=== PATIENT | female | born 2000 | race Caucasian/White ===

== ENCOUNTER 2023-06-14 14:40 | Emergency (ER) | payer BC, SELFPAY ==
[2023-06-14] VITALS (10 sets, daily range): BP systolic 105–119; BP diastolic 71–75; PULSE 68–83; RESP 15–21; TEMP 36.7; O2SAT 99–100
--- NOTE | ~2023-06-14 | XR_ITS ---
EXAMINATION: XR chest 2V DATE: 06/14/2023 15:13 INDICATION: Chest pain. Palpitations. TECHNIQUE: Frontal and lateral views of the chest were obtained. COMPARISON: None. FINDINGS: There is no pneumonia, pleural effusion, or pneumothorax. The heart size is normal. IMPRESSION: 1. No acute cardiopulmonary disease. Reviewed, dictated and finalized at location B.
--- NOTE | 2023-06-14 14:47 | ECG_ITS ---
Measurements Intervals [place] Rate: 82 P: 73 OK: 163 QRS: 99 QRSD: 96 T: 47 QT: 346 QTc: 405 Interpretive Statements SINUS RHYTHM POSSIBLE RIGHT ATRIAL ENLARGEMENT [0.25mV P WAVE] POSSIBLE LEFT ATRIAL ENLARGEMENT BORDERLINE RIGHT AXIS DEVIATION [QRS AXIS > 90] INCOMPLETE RIGHT BUNDLE BRANCH BLOCK [90+ ms QRS DURATION, TERMINAL R IN V1/V2, 40+ ms S IN I/aVL/V4/V5/V6] NO PREVIOUS ECG AVAILABLE FOR COMPARISON Electronically Signed On 06-14-2023 19:38:53 CDT by Mihaela Flores M.D.
[2023-06-14 14:59] LABS: Basophils Percent Auto 0.6 % (0.2-1.2); Eosinophils Absolute Auto 0.4 K/mm3 (0-0.3); Hematocrit 38.3 % (37.0-47.0); Immature Granulocyte Absolute 0.02 K/mm3 (0.00-0.031); Immature Granulocyte Percent A 0.3 % (0-0.5); Lymphocytes Absolute Auto 2.13 K/mm3 (0.9-3.2); Lymphocytes Percent Auto 30.6 % (18.3-44.2); Mean Corpuscular HGB Conc 33.9 g/dl (32-36); Mean Corpuscular Hemoglobin 28.6 pg (26-34); Mean Corpuscular Volume 84.4 fl (80-100); Mean Platelet Volume 9.4 fl (7.4-10.4); Monocytes Absolute Auto 0.6 K/mm3 (0.1-0.6); Monocytes Percent Auto 8.9 % (2.6-8.5); Neutrophils Absolute Auto 3.8 K/mm3 (1.3-6.7); Neutrophils Percent Auto 54.6 % (45.5-73.1); Platelet Count Result 294 k/mm3 (150-375); Red Blood Count 4.54 M/mm3 (4.2-5.4); Red Cell Distribution Width 11.7 % (11.5-14.5)
--- NOTE | 2023-06-14 15:01 | ED.ARRPALP ---
HPI - Arrhythmia/Palpitations General Chief Complaint: Arrhythmia/Palpitations Stated Complaint: HEART RACING Time Seen by Provider: 06/14/23 14:43 History of Present Illness HPI narrative: 23-year-old female no medical problems presents to the emergency room for evaluation of sudden onset of palpitations and tachycardia. Patient states that she was sitting down when she began experiencing palpitations and shortness of breath. Patient states that she looked at her Apple Watch and saw that her heart rate was fluctuating between 110 and 130. Palpitations were associated with dizziness and lightheadedness. Patient denies any recreational drug use. No history of similar episodes. Related Data Home Medications Medication Instructions Recorded Confirmed atomoxetine 60 mg capsule 60 mg PO DIRECTED 06/14/23 06/14/23 Allergies Allergy/AdvReac Type Severity Reaction Status Date / Time No Known Drug Allergies Allergy Mild Unknown Verified 06/14/23 14:44 Review of Systems Review of Systems: CONSTITUTIONAL: Denies fever, chills, or sweats. EYES: Denies visual changes, redness, or discharge. ENT: Denies rhinorrhea, congestion, sore throat, or otalgia. CARDIOVASCULAR: Reports chest pain and palpitations. RESPIRATORY: Denies cough or dyspnea. GASTROINTESTINAL: Denies abdominal pain, nausea, vomiting, or diarrhea. GENITOURINARY: Denies dysuria or hematuria. SKIN: Denies rash or itching. MUSCULOSKELETAL: Denies back pain, joint pain, or myalgia. NEUROLOGIC: Reports dizziness PSYCHIATRIC: Denies anxiety or depression. [facility] Past Medical History Medical History (Updated 06/14/23 @ 16:11 by Ashwin Prince, DIE GRINDER) Carpal tunnel syndrome of left wrist Chronic headaches Left wrist pain Numbness and tingling Social History Social History (Updated 07/28/22 @ 09:17 by Violet Benitez) Smoking status: Current every day smoker Tobacco type: e-cigarettes/vaping Second hand tobacco smoke exposure: Yes Drinks per week: 5 Substance use: never Living arrangements: with family Occupation/Education: occupation Additional occupation/education comments: steel handler Gender identity (if verbalized by the patient): Female Exam Narrative: GENERAL: Well-appearing, well-nourished, no physical limitations, and in no acute distress. HEAD: Normocephalic, atraumatic. EYES: Conjunctivae normal, PERRLA and EOMI. CHEST: Clear to auscultation. No respiratory distress. No wheezes rales or rhonchi. HEART: Regular rate and rhythm. No murmur heard. Normal peripheral pulses. EXTREMITIES: Normal range of motion. No edema. No clubbing or cyanosis SKIN: Warm, dry, no rash. No noted wounds NEURO: No focal deficits. Alert and oriented x3. MAEW. CN's II-XI intact bilaterally, normal gait PSYCH: Cooperative. Normal mood and affect. Appears in Course Vital Signs Vital signs: Vital Signs Temperature 36.7 C 06/14/23 14:44 Pulse Rate 69 06/14/23 14:44 Respiratory Rate 20 06/14/23 14:44 Blood Pressure 119/75 06/14/23 14:44 Pulse Oximetry 100 06/14/23 14:44 Oxygen Delivery Room Air 06/14/23 14:44 Temperature 36.7 C 06/14/23 14:44 Pulse Rate 69 06/14/23 14:44 Respiratory Rate 20 06/14/23 14:44 Blood Pressure 119/75 06/14/23 14:44 Pulse Oximetry 100 06/14/23 14:44 Oxygen Delivery Room Air 06/14/23 14:44 MDM - Arrhythmia/Palpitations MDM Narrative Medical decision making narrative: 23-year-old female no medical problems presented to the emergency room for evaluation of palpitations and tachycardia. EKG shows no signs of acute ischemia. Single troponin was negative CBC and CMP were unremarkable. Patient was hemodynamically stable throughout her course. Patient did not have any episodes of tachycardia or SVT. TSH was within normal limits. D-dimer was negative. Electrolytes were within normal limits. Discussed case with Dr. Flores, she recommends patient follow-up wit
[2023-06-14 15:10] LABS: Alanine Aminotransferase 16 U/L (6-35); Albumin Level 4.7 g/dL (3.5-5.1); Alkaline Phosphatase 57 U/L (38-126); Anion Gap 9 mmol/L (8-16); Aspartate Amino Transferase 21 U/L (14-36); Bilirubin,Total 0.3 mg/dL (0.2-1.3); Blood Urea Nitrogen 10 mg/dL (7-17); Calcium 9.6 mg/dL (8.4-10.2); Carbon Dioxide 26 mmol/L (22-30); Chloride 105 mmol/L (98-107); Estimated CRCL calculation 100 ml/min; Estimated Glomerular Filt Rate > 60; Glucose 84 mg/dL (65-110); Lipase 89 U/L (23-300); Potassium 3.6 mmol/L (3.4-5.0); Sodium 140 mmol/L (137-145)
[2023-06-14 15:20] LABS: Troponin I < 0.012 ng/mL (0.000-0.034)
[2023-06-14 15:23] LABS: D Dimer < 0.27 ug/mL (<0.48)
[2023-06-14 15:44] LABS: Magnesium 2.2 mg/dL (1.6-2.3)
[2023-06-14 16:03] LABS: Appearance Urine Clear (Clear); Bacteria Urine Rare /hpf; Bilirubin Urine Negative (Negative); Blood Urine Negative (Negative); Color Urine Yellow (Yellow); Glucose Urine UA Negative (Negative); Ketones Urine Negative (Negative); Leukocyte Esterase Ur Trace LEU/UL (Negative); Nitrate Urine Negative (Negative); Non Pathogenic Casts 0-2; Protein Urine Negative (Negative); RBC Urine 0-2 /hpf (0-2); Specific Grav Ur 1.005 (1.001-1.035); Squamous Epithelial Cell Urine Few /hpf (Few); Urobilinogen Urine 0.2 mg/dL (<2.0); pH Urine 6.5 (5.0-9.0)
[2023-06-14 16:06] LABS: Add Urine Microscopic? YES
[2023-06-14 16:15] LABS: Amphetamine Screen Urine Negative (Negative); Barbiturate Screen Urine Negative (Negative); Benzodiazepines Screen Urine Negative (Negative); Cannabinoid Screen Urine Negative (Negative); Cocaine Screen Urine Negative (Negative); Methadone Screen Urine Negative (Negative); Opiate Screen Urine Negative (Negative); Phencyclidine Screen Urine Negative (Negative)
== END 2023-06-14 16:35 | disposition home or self-care (01) ==
PROVIDERS: Emergency Provider Nurse Practitioner Family; PCP Emergency Medicine
DX: R00.2 Palpitations (principal); F17.290 Nicotine dependence, other tobacco product, uncomplicated
CPT/HCPCS: 36415; 71046; 80053; 80307; 81001; 81025; 83690; 83735; 84443; 84484; 85025; 85380; 87086; 87088; 93005; 99284

== ENCOUNTER 2024-01-24 01:25 | Emergency (ER) | payer BC, SELFPAY ==
--- NOTE | ~2024-01-24 | US_ITS ---
Pelvic ultrasound. Clinical History: Pelvic pain Technique: Realtime transabdominal and transvaginal scanning of the pelvis was performed. Color flow Doppler and Doppler spectral analysis were performed. Findings: The uterus is anteverted. The endometrial stripe has a thickness of 10 mm. No focal mass i s identified. The right ovary measures 6.0 x 3.3 x 4.4 cm. Right ovarian cyst measures 3.5 cm in diameter. The left ovary measures 3.1 x 1.7 x 2.8 cm. No significant left ovarian or adnexal mass is seen. Vascular flow present in both ovaries on Doppler spectral analysis. There is no evidence of free fluid in the cul de sac. Impression: No evidence for torsion. 3.5 cm right ovarian cyst. Reviewed, dictated and finalized at [facility]. Impression: No evidence for torsion. 3.5 cm right ovarian cyst.
--- NOTE | ~2024-01-24 | CT_ITS ---
CT of the Abdomen and Pelvis: Indication: Abdominal pain Technique: 2.5 mm axial scans were obtained through the abdomen and pelvis following intravenous adm inistration of 100 cc of Omnipaque 350. Dose reduction technique was used on this scan by utilizing a utomated exposure control and iterative reconstruction technique. The dose-length product (DLP) was 2 81.78 mGy-cm. Findings: Scans through the lung bases are unremarkable. The liver, spleen, pancreas, gallbladder, adrenals and kidneys are within normal limits. No evidence of aortic aneurysm. No lymphadenopathy. No bowel obstruction or bowel wall thickening. There is no evidence to suggest acute appendicitis. Images through the pelvis were performed. Urinary bladder unremarkable. 3.5 cm right ovarian cyst pre sent. No ascites. Impression: 3.5 cm right ovarian cyst. Reviewed, dictated and finalized at location . Impression: 3.5 cm right ovarian cyst.
[2024-01-24 01:28] VITALS: BP 115/53; PULSE 65; RESP 16; TEMP 36.5; O2SAT 100
--- NOTE | 2024-01-24 01:58 | ED.GENADULT ---
HPI - General Adult General Chief complaint: Abdominal Pain <PAM Church Last Filed: 01/24/24 03:09> Stated complaint: abd pain <PAM Church Last Filed: 01/24/24 03:09> Time Seen by Provider: 01/24/24 01:34 <PAM Church Last Filed: 01/24/24 03:09> Source: patient <PAM Church Last Filed: 01/24/24 03:09> Mode of arrival: ambulatory <PAM Church Last Filed: 01/24/24 03:09> Limitations: no limitations <PAM Church Last Filed: 01/24/24 03:09> History of Present Illness HPI narrative: This is a 23-year-old female who presents to the ED with chief complaint sudden-onset severe lower abdominal pain beginning at around 1:00 a.m. this morning. Patient states that she was trying to go to sleep and had bilateral pelvic/suprapubic pain described as an extreme pressure. She also describes it as a stabbing pain. States that she had a similar episode a couple days ago that resolved on its own. She has been told in the past that she has ovarian cysts. She does state that she had 1 episode of vomiting and is still complaining of nausea now. Unknown last menstrual period, states she had Depo shot past weekend. Denies vaginal symptoms were concern for STD. Denies urinary symptoms, flank pain or problems with bowel movements. Denies fevers, chills, chest pain, shortness of breath, cough. <PAM Church Last Filed: 01/24/24 03:09> Related Data Home medications: Home Medications Medication Instructions Recorded Confirmed atomoxetine 60 mg capsule 60 mg PO DIRECTED 06/14/23 06/14/23 <PAM Church Last Filed: 01/24/24 03:09> Allergies/adverse reactions: Allergies Allergy/AdvReac Type Severity Reaction Status Date / Time No Known Drug Allergies Allergy Mild Unknown Verified 06/14/23 14:44 <PAM Church Last Filed: 01/24/24 03:09> Review of Systems Review of Systems: All systems as dictated in HPI <PAM Church Last Filed: 01/24/24 03:09> [facility] Past Medical History Medical History: Medical History (Updated 01/24/24 @ 04:19 by Nick Cole MD) Carpal tunnel syndrome of left wrist Chronic headaches Left wrist pain Numbness and tingling <Gregory Moreno PA-C - Last Filed: 01/24/24 03:09> Social History Social History: Social History (Updated 07/28/22 @ 09:17 by Violet Benitez) Smoking status: Current every day smoker Tobacco type: e-cigarettes/vaping Second hand tobacco smoke exposure: Yes Drinks per week: 5 Substance use: never Living arrangements: with family Occupation/Education: occupation 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 HEAD: Normocephalic, atraumatic. EYES: PERRLA and EOMI. ENT: Nares clear, no rhinorrhea or epistaxis. Mucous membranes moist. Oropharynx without tonsillar hypertrophy exudate or other lesions. NECK: Supple. No adenopathy or masses. CHEST: No respiratory distress. Clear to auscultation. No wheezes rales or rhonchi HEART: Regular rate and rhythm. No murmur heard. Normal peripheral pulses. ABDOMEN: Mild left lower quadrant and right lower quadrant tenderness present. Soft, otherwise nontender, nondistended, normal active bowel sounds. Negative flank tenderness bilaterally. MSK: Normal range of motion. No edema. SKIN: Warm, dry, no rash. NEURO: Alert and oriented x3. No focal deficits. PSYCH: Normal mood and affect. <Gregory Moreno PA-C - Last Filed: 01/24/24 03:09> Course Vital Signs Vital signs: Vital Signs Temperature 36.5 C 01/24/24 01:28 Pulse Rate 65 01/24/24 01:28 Respiratory Rate 16 01/24/24 01:28 Blood Pressure 115/53 L 01/24/24 01:28 Pulse Oximet
[2024-01-24 02:06] LABS: Appearance Urine Cloudy (Clear); Bacteria Urine 4+ /hpf; Bilirubin Urine Negative (Negative); Blood Urine Negative (Negative); Color Urine Yellow (Yellow); Glucose Urine UA Negative (Negative); Ketones Urine Negative (Negative); Leukocyte Esterase Ur 1+ LEU/UL (Negative); Nitrate Urine Negative (Negative); Non Pathogenic Casts 0-2; Protein Urine Negative (Negative); RBC Urine 0-2 /hpf (0-2); Specific Grav Ur 1.016 (1.001-1.035); Squamous Epithelial Cell Urine Many /hpf (Few); Urobilinogen Urine 0.2 mg/dL (<2.0); pH Urine 5.5 (5.0-9.0)
[2024-01-24 02:06] LABS: Basophils Percent Auto 0.4 % (0.2-1.2); Eosinophils Absolute Auto 0.2 K/mm3 (0-0.3); Hematocrit 36.5 % (37.0-47.0); Hemoglobin 12.7 g/dL (12.0-15.0); Immature Granulocyte Absolute 0.02 K/mm3 (0.00-0.031); Immature Granulocyte Percent A 0.3 % (0-0.5); Lymphocytes Percent Auto 39.1 % (18.3-44.2); Mean Corpuscular HGB Conc 34.8 g/dl (32-36); Mean Corpuscular Hemoglobin 29.3 pg (26-34); Mean Corpuscular Volume 84.1 fl (80-100); Mean Platelet Volume 9.3 fl (7.4-10.4); Monocytes Absolute Auto 0.7 K/mm3 (0.1-0.6); Monocytes Percent Auto 9.6 % (2.6-8.5); Neutrophils Absolute Auto 3.7 K/mm3 (1.3-6.7); Neutrophils Percent Auto 48.6 % (45.5-73.1); Platelet Count Result 247 k/mm3 (150-375); Red Blood Count 4.34 M/mm3 (4.2-5.4); Red Cell Distribution Width 11.8 % (11.5-14.5); White Blood Count 7.7 K/mm3 (4.5-10.0)
[2024-01-24 02:08] LABS: Add Urine Microscopic? YES
[2024-01-24] MEDS: ONDANSETRON INJ 4 MG/2 ML VIAL IV PUSH (02:11)
[2024-01-24] MEDS: MORPHINE SULFATE (*CRX) 4 MG/ML INJ IV PUSH (02:11)
--- NOTE | 2024-01-24 02:14 | PC.NURSE ---
After scanning Morphine; patient states she wants to wait on pain medication. States she took Ibuprofen prior to coming and is not concerned about the pain at this time.
[2024-01-24 02:23] LABS: Alanine Aminotransferase 13 U/L (6-35); Albumin Level 4.1 g/dL (3.5-5.1); Alkaline Phosphatase 58 U/L (38-126); Anion Gap 6 mmol/L (8-16); Aspartate Amino Transferase 37 U/L (14-36); Bilirubin,Total 0.3 mg/dL (0.2-1.3); Blood Urea Nitrogen 9 mg/dL (7-17); Calcium 9.3 mg/dL (8.4-10.2); Carbon Dioxide 23 mmol/L (22-30); Chloride 107 mmol/L (98-107); Estimated CRCL calculation 116 ml/min; Estimated Glomerular Filt Rate > 60; Glucose 95 mg/dL (65-110); Lipase 68 U/L (23-300); Potassium 3.5 mmol/L (3.4-5.0); Sodium 136 mmol/L (137-145)
[2024-01-24 04:29] VITALS: BP 114/52; PULSE 58; RESP 15; O2SAT 100
== END 2024-01-24 04:30 | disposition home or self-care (01) ==
PROVIDERS: Physician Assistant; Emergency Provider Emergency Medicine; PCP Emergency Medicine
DX: N83.201 Unspecified ovarian cyst, right side (principal); F17.290 Nicotine dependence, other tobacco product, uncomplicated
CPT/HCPCS: 36415; 74177; 76856; 80053; 83690; 85025; 87086; 96374; 96375; 99284; J2270; J2405; Q9967

== ENCOUNTER 2025-02-07 17:58 | Emergency (ER) | payer BC, SELFPAY ==
--- OUTSIDE RECORDS SUMMARY | 2025-02-07 18:01 | XMS_ITS | Encounter Summary ---
Author Organization [facility] Address [address] [place] [id number] Care Team Providers Care Heel Sander Name Role Phone Aleksandar Pierce MD Primary Care Provider [phone] Encounter Details Date Type Department Care Team (Latest Contact Info) Description 02/07/2025 Travel Social History Tobacco Use Types Packs/Day Years Used Date Smoking Tobacco: Former Cigarettes Smokeless Tobacco: Never Alcohol Use Standard Drinks/Week Comments Not Currently 0 (1 standard drink = 0.6 oz pur e alcohol) AUDIT-C Answer Date Recorded Frequency of Alcohol Consumption Never 10/28/2019 Average Number of Drinks Not on file 019 Frequency of Binge Drinking Not on file 10/13 Comments No Sex and Gender Information Value Date Recorded Sex Assigned at Female 01/29/2025 2:20 PM CDT Legal Sex Female 7:51 AM CDT Gender Identity Not on file Sexual Orientation Not on file documented as of this encounter Plan of Treatment Not on file documented as of this encounter Visit Diagnoses Not on filedocumented in this encounter Care Teams Heel Sander Relationship Specialty Start Date End Date Aleksandar Pierce MD [address] [place] [address] PCP - General FAMILY PRACTICE 10/28/19 documented as of this encounter
--- OUTSIDE RECORDS SUMMARY | 2025-02-07 18:01 | XMS_ITS | Clinical Summary ---
Author Organization [facility] Address [facility] [place] [address] Care Team Providers Care Manager Of Maintenance Name Role Phone Aleksandar Pierce MD Primary Care Provider [phone] Allergies No known active allergies Medications ondansetron 4 MG disintegrating tablet Take 1 tablet (4 mg total) by mouth every 6 (six) hours as needed. 10 tablet 01/31/20 25 Discontinu ed(Error) Active Problems No known active problems Encounters Date Type Department Care Team Description 02/07/2025 8:20 AM CDT - 02/07/2025 9:54 AM CDT Surgery [facility] OR [address] [place] [address] Monalisa Quintana MD DIAGNOSTIC LAPAROSCOPY, EXCISION OF ENDOMETRIOSIS, HYSTEROSCOPY 02/07/2025 8:15 AM CDT Anesthesia Event [facility] OR [address] [place] [address] Dante Mtz CRNA Dietz, Tessa V 02/07/2025 7:11 AM CDT - 02/07/2025 11:30 AM CDT Hospital Encounter [address] [address] Monalisa Quintana MD Discharge Disposition: Home or Self Care (Routine Discharge) 02/07/2025 Travel 01/30/2025 Travel 01/29/2025 2:20 PM CDT - 01/29/2025 11:59 PM CDT Hospital Encounter [facility] [address] [place] [address] Monalisa Quintana MD Discharge Disposition: Home or Self Care (Routine Discharge) 01/29/2025 Orders Only [facility] [address] [place] [address] Monalisa Quintana MD 01/29/2025 Travel from Last 3 Months Family History Relation Status Comments Father Alive Mother Alive Social History Tobacco Use Types Packs/Day Years Used Date Smoking Tobacco: Former Cigarettes Smokeless Tobacco: Never Tobacco Cessation:Counseling Given: Not Answered Alcohol Use Standard Drinks/Week Comments Not Currently [...] on file Sexual Orientation Not on file Last Filed Vital Signs Vital Sign Reading Time Taken Comments Blood Pressure 132/72 02/07/2025 11:00 AM CDT Pulse 76 02/07/2025 11:00 AM CDT Temperature 36.4 C (97.6 F) 02/07/2025 10:12 AM CDT Respiratory Rate 18 02/07/2025 11:00 AM CDT Oxygen Saturation 98% 02/07/2025 10:50 AM CDT Inhaled Oxygen Concentration - - Weight 70.3 kg (155 lb) 02/07/2025 7:34 AM CDT Height 167.6 cm (5' 6 ) 02/07/2025 7:34 AM CDT Body Mass Index 25.02 02/07/2025 7:34 AM CDT Plan of Treatment Health Maintenance Due Date Last Done Comments Cervical Cancer Screening Pa p Smear (Age 21 to 29) Every 3 Years 1999 Cervical Cancer Screening 1999 Annual Physical 2002 HPV Vaccines (1 - 3-dose series) 2014 Hepatitis C 2017 DTaP, Tdap and Td Vaccines ( 1 - Tdap) 2018 Hepatitis B Vaccines (1 of 3 - 19+ 3-dose series) 2018 COVID-19 Vaccine (2023-2 5 season) 2024 09/28/2021, 09/06/2021 Meningococcal B Vaccine Aged Out No l onger eligible based on patient's age to complete this topic Meningococcal Vaccine Aged Out No harry shanon eligible based on patient's age to complete this topic Pneumococcal Vaccine: Pediatrics (0 to 5 Years) and At-Risk Patients (6 to 64 Years) Aged Out No longer eligible b ased on patient's age to complete this topic RSV Immunizations Under 20 Months Aged Out No longer eligible b ased on patient's age to complete this topic Procedures Procedure Name Priority Date/Time Associated Diagnosis Comments LAPAROSCOPY DIAGNOSTIC 02/07/2025 8:16 AM CDT dyspareunia, dysfunctional uterine bleeding TEST URINE Routine 02/07/2025 7:20 AM CDT URINE BACTERIA CULTURE Routine 01/29/2025 2:35 PM CDT Unspecified dyspareunia Abnormal uterine and vaginal bleeding, unspecified Preop examination CBC W/DIFF AUTOMATED Routine 01/29/2025 2:35 PM CDT Unspecified dyspareunia Abnormal uterine and vaginal bleeding, unspecified Preop examination HC URNLS DIP STICK/TABLET RGNT AUTO W/O MICRO Routine 01/29/2025 2:35 PM CDT Unspecified dyspareunia Abnormal uterine and vaginal bleeding, unspecified Preop examination from Last 3 Months Results * TEST URINE (02/07/2025 7:20 AM CDT) URINE HCG TEST NEGATIVE NEGATIVE 02/07/2025 7:41 AM CDT [facility] Comment: VERY DILUTE URINE SPECIMENS MAY NOT CONTAIN BOWLING ALLEY REFINISHER LEVELS OF HCG. IF IS STILL SUSPECTED, A SERUM HCG TEST IS RECOMMENDED. URINE SPECIMEN FROM URETHRA / Unknown 02/07/2025 7:20 AM CDT Monalisa Quintana MD URINE ORDERABLES Final Resu lt [facility] [address] [place] [address], [place] [phone] * URINALYSIS W/ REFLEX TO MICROSCOPIC (01/29/2025 2:35 PM CDT) SPECIMEN TYPE urine 01/29/2025 2:37 PM CDT [facility] COLOR (U) LIGHT YELLOW 01/29/2025 8:05 PM CDT [facility] TRANSPARENCY CLEAR 01/29/2025 8:05 PM CDT [facility] SPECIFIC GRAVITY (U) 1.014 1.001 - 1.030 01/29/2025 8:05 PM CDT [facility] U PH 7.5 5.0 - 9.0 01/29/2025 8:05 PM CDT [facility] LEUKOCYTES (U) NEGATIVE NEGATIVE 01/29/2025 8:05 PM CDT [facility] NITRITES NEGATIVE NEGATIVE 01/29/2025 8:05 PM CDT [facility] PROTEIN RANDOM (U) NEGATIVE <30 MG/DL 01/29/2025 8:05 PM CDT [facility] GLUCOSE (U) NORMAL NORMAL MG/DL 01/29/2025 8:05 PM CDT [facility] KETONES MG/DL (U) NEGATIVE NEGATIVE MG/DL 01/29/2025 8:05 PM CDT [facility] UROBILINOGEN NORMAL NORMAL MG/DL 01/29/2025 8:05 PM CDT [facility] BILIRUBIN (U) NEGATIVE NEGATIVE MG/DL 01/29/2025 8:05 PM CDT [facility] BLOOD (U) NEGATIVE NEGATIVE 01/29/2025 8:05 PM CDT [facility] URINE SPECIMEN OBTAINED BY CLEAN CATCH PROCEDURE / Unknown 01/29/2025 2:35 PM CDT Monalisa Quintana MD URINE ORDERABLES Final Resu lt Performing Organization Address [facility] Co de Phone Number [facility] [address] [place] [address], [place] [phone] [facility] [address] [facility] [place] [address], [place] * URINE BACTERIA CULTURE (01/29/2025 2:35 PM CDT) SPEC DESCRIPTION URINE CLEAN CATCH 01/29/2025 2:32 PM CDT [facility] SPECIAL REQUESTS NO SPECIAL REQUEST 01/29/2025 2:32 PM CDT [facility] CULTURE RESULT NO GROWTH 2 DAYS 01/31/2025 8:04 AM CDT [facility] URINE SPECIMEN OBTAINED BY CLEAN CATCH PROCEDURE / Unknown 01/29/2025 2:35 PM CDT 01/29/2025 2:36 PM CDT Monalisa Quintana MD [facility] Final Result Performing Organization Address [facility] Co de Phone Number [facility] [address] [place] [address], [place] [phone] [facility] [address] [facility] [place] [address], [place] * (ABNORMAL) CBC W/DIFF AUTOMATED (01/29/2025 2:35 PM CDT) WBC 8.66 4.50 - 11.00 x10'3/uL 01/29/2025 2:39 PM CDT [facility] RBC 4.37 4.00 - 5.20 x10'6/uL 01/29/2025 2:39 PM CDT [facility] HGB 12.6 12.0 - 16.0 G/DL 01/29/2025 2:39 PM CDT [facility] HCT 37.1(L) 38.0 - 48.0 % 01/29/2025 2:39 PM CDT [facility] MCV 84.9 80.0 - 100.0 FL 01/29/2025 2:39 PM CDT [facility] MCH 28.8 26.0 - 34.0 PG 01/29/2025 2:39 PM CDT [facility] MCHC 34.0 31.0 - 37.0 G/DL 01/29/2025 2:39 PM CDT [facility] RDW 11.8 11.6 - 14.8 % 01/29/2025 2:39 PM CDT [facility] PLT 344 130 - 400 x10'3/uL 01/29/2025 2:39 PM CDT [facility] MPV 9.4 7.0 - 12.0 FL 01/29/2025 2:39 PM CDT [facility] CBC COMMENT AUTOMATED RBC MORPHOLOGY AND PLATELET EVALUATION NORMAL 01/29/2025 2:39 PM CDT [facility] NEUTROPHILS % 63.2 40.0 - 74.0 % 01/29/2025 2:39 PM CDT [facility] LYMPHOCYTES % 24.9 14.0 - 46.0 % 01/29/2025 2:39 PM CDT [facility] MONOCYTES % 8.9 4.0 - 13.0 % 01/29/2025 2:39 PM CDT [facility] EOSINOPHILS 2.2 0.0 - 7.0 % 01/29/2025 2:39 PM CDT [facility] BASOPHILS 0.6 0.0 - 3.0 % 01/29/2025 2:39 PM CDT [facility] IMMATURE GRANS % 0.2 0.0 - 0.43 % 01/29/2025 2:39 PM CDT [facility] NRBC % 0.0 % 01/29/2025 2:39 PM CDT [facility] ABS. NEUTROPHILS TOTAL 5.47 1.69 - 7.81 x10'3/uL 01/29/2025 2:39 PM CDT [facility] ABS. LYMPHOCYTES 2.16 0.21 - 5.42 x10'3/uL 01/29/2025 2:39 PM CDT [facility] ABS. MONOCYTES 0.77 0.04 - 1.37 x10'3/uL 01/29/2025 2:39 PM CDT [facility] ABS. EOSINOPHILS 0.19 0.00 - 0.68 x10'3/uL 01/29/2025 2:39 PM CDT [facility] ABS. BASOPHILS 0.05 0.00 - 0.08 x10'3/uL 01/29/2025 2:39 PM CDT [facility] ABS. IMMATURE GRANULOCYTES 0.02 0.00 - 0.06 x10'3/uL 01/29/2025 2:39 PM CDT [facility] ABS. NUCLEATED RBC'S 0.00 0.00 - 0.01 x10'3/uL 01/29/2025 2:39 PM CDT [facility] 01/29/2025 2:35 PM CDT us Monalisa Quintana MD LABORATORY Final Resul t [facility] [address] [facility] [place] [address], from Last [address] [place] [address] [address] Advance Directives * Full Code (Latest Code Status on File) Date Activated Date Inactivated Comments 02/07/2025 10:24 AM 02/07/2025 1:45 PM Care Teams Manager Of Maintenance Relationship Specialty Start Date End Date Aleksandar Pierce MD [address] [place] [address] PCP - General FAMILY PRACTICE 10/28/19
--- OUTSIDE RECORDS SUMMARY | 2025-02-07 18:01 | XMS_ITS | Encounter Summary ---
Author Organization [facility] Address [facility] [place] [address] Care Team Providers Care Management Nurse Rn Name Role Phone Aleksandar Pierce MD Primary Care Provider [phone] Reason for Visit * Auth/Cert (Routine) Specialty Diagnoses / Procedures Referred By Georgette t Referred To Contact Diagnoses dyspareunia, dysfunctional uterine bleeding Procedures HYSTEROSCOPY,W/ENDO BX LAP,LYSIS OF ADHESIONS DIAGNOSTIC LAPAROSCOPY, POSSIBLE LYSIS OF ADHESIONS, POSSIBLE EXCISION OF ENDOMETRIOSIS, HYSTEROSCOPY, POSSIBLE DILATATION AND CURETTAGE POSSIBLE DILATATION & CURETTAGE Monalisa Welch MD [address] [place] [address] Phone: tel: fax: Referral ID Status Reason Start Date Expiration Date Visits Re quested Visits Authorized [id number] 1 1 Encounter Details Date Type Department Care Team (Latest Contact Info) Description 02/07/2025 7:11 AM CDT - 02/07/2025 11:30 AM T Hospital Encounter [facility] OR [address] [place], [place] [address] Monalisa Welch MD [address] [place] [address] Discharge Disposition: Home or Self Care (Routine Discharge) Social History Tobacco Use Types Packs/Day Years [...] on file documented as of this encounter Last Filed Vital Signs Vital Sign Reading [...] Mass Index 25.02 02/07/2025 7:34 AM CDT documented in this encounter Discharge Instructions * Discharge Instructions* Krissy Messer RN - 02/07/2025 9:39 AM CDT Gove sent to [facility] in [place] PAIN PILL OF NORCO was given today at 1035 this morning. May repeat in 4-6 hours as needed Laparoscopy Patient Instructions Guidelines At Home Rest for 24 hours after you arrive home. Avoid heavy lifting or strenuous work for 3-4 days. You may experience shoulder pain for about 24 hours due to irritation of your diaphragm. If so, lieflat and use pain medications as needed. You might experience minor discomfort in your incisions. You may take Acetaminophen, Ibuprofen, or prescription medicines as needed. You may experience a small amount of vaginal bleeding for 1 week. You may have some bruising around your navel or abdomen for a few days. You may shower or tub bathe. Pat incisions dry. Do not soak in a tub of water. May shower in 24 hours Call The Doctor If You Have Heavy or persistent vaginal bleeding. Severe pain, redness, swelling or drainage from the incision. A fever greater than 100.5 F. Pain, burning or difficulty with urination. Severe or persistent pain unrelieved by Acetaminophen or Ibuprofen. Persistent nausea/vomiting or abdominal pain. Please Schedule An appointment in 1-2 weeks for follow-up care. Our office number is [phone]. PATIENT INSTRUCTIONS POST-ANESTHESIA IMMEDIATELY FOLLOWING SURGERY: Do not drive or operate machinery for day of surgery. Do not make any important decisions for twenty four hours after surgery or while taking narcotic pain medications or sedatives. If you develop intractable nausea and vomiting or a severe headache please notify yourdoctor immediately. FOLLOW-UP: Please make an appointment with your surgeon as instructed. You do not need to follow upwith anesthesia unless specifically instructed to do so. QUESTIONS?: Please feel free to call your physician or Outpatient Surgery at [phone] Monday through Monday 8:00am to 4:00pm. If you have any questions after hours, you may call the hospital process area supervisor at [phone]. * Attachments The following attachments cannot be sent through Care Everywhere. * Neck pain ([place] Island[place]) * Endometriosis ([place]) * Hydrocodone and Acetaminophen, ADULT ([place]) * Laparoscopy ([place]) documented in this encounter Progress Notes * Krissy Messer RN - 02/07/2025 11:30 AM CDT At 2pm today. Pt called staff because neck pain has returned and prescriptions were not called in. Dr shalonda simpson notified and prescription pain meds was called in. Dante notified of returning neck pain. Pt instructed to alternate heat and ice and take ibuprofen for neck discomfort or go to ER--PER Dante. Pt was given above message documented in this encounter H&P Notes * Monalisa Welch MD - 02/07/2025 8:08 AM CDT HISTORY AND PHYSICAL INTERVAL NOTE: I have reviewed Salome Lo History & Physical which was performed within the past 30 days.After examining Salome Lo, no change has occurred in the patient's condition since the H&P was completed. Informed Consent Discussion: Potential benefits, risks, and side effects of the patient's procedure/surgery; the likelihood of the patient achieving his or her goals; and any potential problems that might occur during recuperation were discussed with the patient/family/personal nutrition representative. Reasonable alternatives to the patient's proposed procedure/surgery including benefits, risks, and side effects related to the alternatives and the risks related to not receiving the proposed care were also discussed with the patient/family/personal nutrition representative. Questions were answered and the patient/family/personal nutrition representative verbalized understanding and desires to proceed. Source Note - Scanned, [facility] - 01/29/2025 12:01 AM CDT * Monalisa Welch MD - 02/07/2025 8:08 AM CDT HISTORY AND PHYSICAL INTERVAL NOTE: I have reviewed Salome Lo History & Physical which was performed within the past 30 days.After examining Salome Lo, no change has occurred in the patient's condition since the H&P was completed. Informed Consent Discussion: Potential benefits, risks, and side effects of the patient's procedure/surgery; the likelihood of the patient achieving his or her goals; and any potential problems that might occur during recuperation were discussed with the patient/family/personal nutrition representative. Reasonable alternatives to the patient's proposed procedure/surgery including benefits, risks, and side effects related to the alternatives and the risks related to not receiving the proposed care were also discussed with the patient/family/personal nutrition representative. Questions were answered and the patient/family/personal nutrition representative verbalized understanding and desires to proceed. Source Note - Scanned, [facility] - 01/29/2025 12:01 AM CDT documented in this encounter Nursing Notes * Katarina Pina RN - 02/07/2025 9:59 AM CDTSummary: Chiropractor/Neck Pain Patient experiencing kink in neck on the right side. Patient describes seeing a chiropractor for this same issue on the left yesterday. She is scheduled to see them again on Monday. Per Dr. Chakraborty patient is okay to keep this as scheduled. Patient will remind chiropractor of recent surgery. * Katarina Pina RN - 02/07/2025 9:48 AM CDTSummary: Neck Pain MANAGER OF TRANSPORTATION notified of patient right sided neck pain. No fullness or abnormality palpated in comparison to left side of neck. Patient describes feeling like a kink in your neck when you sleep wrong. Patient seen at chiropractor yesterday for this same issue on the left side of the neck after moving heavyboxes into their new home. MANAGER OF TRANSPORTATION assessed patient. No concerns at this time. Will provide heat/ice as needed. * Katarina Pina RN - 02/07/2025 9:05 AM CDTSummary: Family update Family updated via messaging system. documented in this encounter OR Notes * Op Note - Monalisa Welch MD - 02/07/2025 9:26 AM CDT 02/07/25 dyspareunia, dysfunctional uterine bleeding * No post-op diagnosis entered * MONALISA WELCH MD ANESTHESIA: gen COAL TRAMMER: timmy burger ESTIMATED BLOOD LOSS: min FINDINGS: normal external genitalia, normal vaginal canal and cervix. Nl endometrium, Endo in the anterior culdesac and along right US ligament and back of uterus on left. Few filimy adhesion of colon to left side wall near ovary. SPECIMENS: peritoneal biopsy Timeouts Katarina Pina RN at MonFeb 07, 2025 0837 CDT Timeout Details Timeout type: Pre-incision Signing History Staff Performed Signed Katarina Pina RN MonFeb 07, [id number] CDT MonFeb 07, 2025 0858 CDT PROCEDURE: The patient was taken to the operating room. She was placed in the dorsal supine position. She underwent anesthesia. Epidural was previously in place She was placed in the dorsal lithotomy position and prepped and draped in the usual sterile fashion. Timeout was undertaken. STDs were on and functioning. The speculum was used to visualize the cervix. The anterior lip was grasped with a tenaculum and a uterine manipulation was placed. Attention was turned to the abdomen. A 5mm infraumbilically incision was made. The abdominal wall was tented up with towel clamps and Veress needle was inserted without difficulty. The opening pressure was 2 mmHg. The abdomen was insulated to 15 mmHg. The Veress needle was then removed. A 5mm trocar was placed and a camera was used to verify intra-abdominal placement. The patient was placed in the steep [place] position. Two more 5mm ports were placed in both the lower quadrants. The pelvis was inspected. See findings above. Ovaries were both completely normal. The uterus was normal size shape and countour with a endometrial implant on the posteriorleft side. The Endo in the anterior culdesac was pulled away and tented up and resected. It appeared supericial. Cautery was used to ablate the rest of the implants after they were pulled away from the bladder. The area on the posterior uterus was pulled away and then excised and sent for pathology. The peritoneal edges were cauterized. The implants on the right US were cauterized. The colon was gently moved away from the adhesions and scissors were used to take down the adhesions near the leftovary and pelvic side wall. Pelvis was copiously irrigatged and aspirated. No bleeding was noted. Ureters were visualized wll out of the operative field and peristalsing. Gas was released from the abdomen and the trocars were all removed. Timmy Burger, behavioral health assistant, clowed the incisions while I turned attention vaginally. The manipulator was removed and the hysteroscopy was done with the finding of anormal cavity. Minimal tissue and no polyps or fibroids were seen. All instruments were removed from the vagina and all counts were correct. documented in this encounter Plan of Treatment Not on file documented as of this encounter Procedures Procedure Name Priority Date/Time Associated Diagnosis Comments LAPAROSCOPY DIAGNOSTIC 02/07/2025 8:16 AM CDT dyspareunia, dysfunctional uterine bleeding TEST URINE Routine 02/07/2025 7:20 AM CDT documented in this encounter Results * TEST URINE (02/07/2025 7:20 AM CDT) URINE HCG TEST NEGATIVE NEGATIVE 02/07/2025 7:41 AM CDT [facility] Comment: VERY DILUTE URINE SPECIMENS MAY NOT CONTAIN LINEWORKER LEVELS OF HCG. IF IS STILL SUSPECTED, A SERUM HCG TEST IS RECOMMENDED. URINE SPECIMEN FROM URETHRA / Unknown 02/07/2025 7:20 AM CDT us Monalisa Weclh MD URINE ORDERABLES Final Resu lt [facility] [address] [place] [address], [place] [phone] documented in this encounter Visit Diagnoses Not on filedocumented in this encounter Administered Medications Inactive Administered Medications - up to 3 most recent administrations Medication Order MAR Action Action Date Dose Rate Site acetaminophen (TYLENOL) tablet 1,000 mg 1,000 mg, Oral, Once, 1 dose, On Mon02/07/25 at 0745, Maximum dose of acetaminophen is 4000 mg from all sources in 24 hours., Pre-Op Given 02/07/2025 7:53 AM CDT 1,000 mg famotidine (PF) (PEPCID) injection 20 mg 20 mg, Intravenous, Once, 1 dose, On Mon02/07/25 at 0745, On admission IV Push over 2 minutes, Pre-Op Given 02/07/2025 8:02 AM CDT 20 mg gabapentin (NEURONTIN) capsule 300 mg 300 mg, Oral, Once, 1 dose, On Mon02/07/25 at 0745, Pre-Op Given 02/07/2025 7:53 AM CDT 300 mg HYDROcodone-acetaminophe n (NORCO) 5-325 MG tablet 1 tablet 1 tablet, Oral, Every 4 hours PRN, Moderate pain (Scale 4 - 7), Starting on Mon02/07/25 at 1024, Until Mon02/07/25 at 1340, Maximum dose of acetaminophen is 4000 mg from all sources in 24 hours., Post-Op Given 02/07/2025 10:35 AM CDT 1 tablet ketorolac (TORADOL) injection 30 mg 30 mg, Intravenous, Every 6 hours, 4 doses, First dose on Mon02/07/25 at 1045, Last dose on Mon02/08/25 at 0445, For IV administration, give over 15 seconds., Post-Op ketorolac (TORADOL) tablet 10 mg 10 mg, Oral, Every 6 hours, 16 doses, First dose on Mon02/08/25 at 1045, Last dose on Mon02/12/25 at 0445, Post-Op lactated ringers infusion at 10 mL/hr, Intravenous, Continuous, Starting on Mon02/07/25 at 0745, Until Mon02/07/25 at 1340, Infuse at TKO rate, Pre-Op Continued by Anesthesia 02/07/2025 8:15 AM CDT 10 mL/hr New Bag 02/07/2025 8:02 AM CDT 10 mL/hr meperidine (DEMEROL) injection 25 mg 25 mg, Intravenous, Once as needed, Other, Intractable shivering, 1 dose, Starting on Mon02/07/25 at 0740, Until Mon02/07/25 at 0948, PACU Given 02/07/2025 9:48 AM CDT 25 mg ondansetron (ZOFRAN) injection 4 mg 4 mg, Intravenous, Once, 1 dose, On Mon02/07/25 at 0800, On admission, Pre-Op Given 02/07/2025 8:01 AM CDT 4 mg documented in this encounter Active and Recently Administered Medications Times are shown in CDT. Scheduled Medication Order 02/05/2025 02/06/2025 02/07/2025 acetaminophen (TYLENOL) tablet 1,000 mg (COMPLETED) 1,000 mg, Oral, Once, 1 dose, On Mon02/07/25 at 0745, Maximum dose of acetaminophen is 4000 mg from all sources in 24 hours., Pre-Op 075 (Given - Provid er: Krissy Messer RN) famotidine (PF) (PEPCID) injection 20 mg (COMPLETED) 20 mg, Intravenous, Once, 1 dose, On Mon02/07/25 at 0745, On admission IV Push over 2 minutes, Pre-Op 08 (Given - Provid er: Krissy Messer RN) gabapentin (NEURONTIN) capsule 300 mg (COMPLETED) 300 mg, Oral, Once, 1 dose, On Mon02/07/25 at 0745, Pre-Op 075 (Given - Provid er: Krissy Messer RN) ketorolac (TORADOL) injection 30 mg(Linked Group 1) 30 mg, Intravenous, Every 6 hours, 4 doses, First dose on Mon02/07/25 at 1045, Last dose on Mon02/08/25 at 0445, For IV administration, give over 15 seconds., Post-Op 1045 (Canceled Entry - Provider: Automatic Discharge Provider - Comment: Automatically canceled at discontinue of medication order) ketorolac (TORADOL) tablet 10 mg(Linked Group 1) 10 mg, Oral, Every 6 hours, 16 doses, First dose on Mon02/08/25 at 1045, Last dose on Mon02/12/25 at 0445, Post-Op ondansetron (ZOFRAN) injection 4 mg (COMPLETED) 4 mg, Intravenous, Once, 1 dose, On Mon02/07/25 at 0800, On admission, Pre-Op 08 (Given - Provid er: Krissy Messer RN) Continuous Medication Order 02/05/2025 02/06/2025 02/07/2025 lactated ringers infusion at 10 mL/hr, Intravenous, Continuous, Starting on Mon02/07/25 at 0745, Until Mon02/07/25 at 1340, Infuse at TKO rate, Pre-Op 08 (New Bag - Prov ider: Krissy Messer RN)0815 (Continued by Anesthesia - Provider: Annetta Rivas V)0911 (Anesthesia Volume Adjustment - Provider: Dante Mtz CRNA) PRN Medication Order 02/05/2025 02/06/2025 02/07/2025 acetaminophen (TYLENOL) tablet 650 mg 650 mg, Oral, Every 4 hours PRN, Mild pain (Scale 1 - 3), Fever, Starting on Mon02/07/25 at 1024, Until Mon02/07/25 at 1340, Maximum dose of acetaminophen is 4000 mg from all sources in 24 hours., Post-Op BUpivacaine-EPINEPHrine (PF) 0.25% -[id number] injection (CANCELED) PRN, Starting on Mon02/07/25 at 0840, Until Mon02/07/25 at 0932, Anesthesia Intra-Op 0840 (Given - Provid er: Monalisa Welch MD - Comment: trocar sites at beginning and end of case) HYDROcodone-acetaminophen (NORCO) 5-325 MG tablet 1 tablet 1 tablet, Oral, Every 4 hours PRN, Moderate pain (Scale 4 - 7), Starting on Mon02/07/25 at 1024, Until Mon02/07/25 at 1340, Maximum dose of acetaminophen is 4000 mg from all sources in 24 hours., Post-Op 1035 (Given - Provid er: Krissy Messer RN) ykzedmdcr-oxhjjpkq-jysbizhyzgb (MYL[place]A MAXIMUM STRENGTH) [id number] mg/30mL suspension 10 mL, Oral, Every 4 hours PRN, Indigestion, Heartburn, Starting on Mon02/07/25 at 1024, Until Mon02/07/25 at 1340, Shake Well, Post-Op meperidine (DEMEROL) injection 25 mg (COMPLETED) 25 mg, Intravenous, Once as needed, Other, Intractable shivering, 1 dose, Starting on Mon02/07/25 at 0740, Until Mon02/07/25 at 0948, PACU 0948 (Given - Provid er: Katarina Pina RN) ondansetron (ZOFRAN) injection 4 mg 4 mg, Intravenous, Every 8 hours PRN, Nausea, Vomiting, Starting on Mon02/07/25 at 1024, Until Mon02/07/25 at 1340, Discontinue IV Zofran once able to take PO, Post-Op Linked Groups Order Group 1: ketorolac (TORADOL) injection 30 mgJump to med 30 mg, Intravenous, Every 6 hours, 4 doses, First dose on Mon02/07/25 at 1045, Last dose on Mon02/08/25 at 0445, For IV administration, give over 15 seconds., Post- Op Followed by ketorolac (TORADOL) tablet 10 mgJump to med 10 mg, Oral, Every 6 hours, 16 doses, First dose on Mon02/08/25 at 1045, Last dose on Mon02/12/25 at 0445, Post-Op documented in this encounter Care Teams Management Nurse Rn Relationship Specialty Start Date End Date Aleksandar Pierce MD [address] [place] [address] PCP - General FAMILY PRACTICE 10/28/19 documented as of this encounter
--- OUTSIDE RECORDS SUMMARY | 2025-02-07 18:01 | XMS_ITS | Referral Summary ---
Author Organization [facility] Address [address] [place] [address] Care Team Providers Care Fish And Wildlife Technician Name Role Phone Aleksandar Pierce MD Primary Care Provider [phone] Allergies No known active allergies Medications naratriptan (AMERGE) 2.5 mg tabletIndicatio ns:Migraine Take 1 tablet (2.5 mg total) by mouth once as needed for migraine for up to 1 dose May repeat in 4 hours if unresolved. Do not exceed 5 mg in 24 hours. 9 tablet 3 10/22/2021 Active rimegepant (NURTEC ODT) tablet,disinteg ratingIndicatio ns:Migraine Take 1 tablet (75 mg total) by mouth as needed (headache) Take 1 tablet (75 mg total) by mouth at onset of migraine. May repeat in 2 hours if needed. No more than 2 doses in 24 hrs. 8 tablet 3 01/21/2022 Active venlafaxine XR (EFFEXOR-XR) 150 mg 24 hr capsule Take 1 capsule (150 mg total) by mouth daily 90 capsule 1 05/17/2022 Active Active Problems Problem Noted Date Diagnosed Date Rash of face 09/12/2023 Assessment & Plan (09/12/2023 12:55 PM CDT): Discussed dermatology and follow up with PCP rule out psoriasis. Will start prednisone to help with initial flare. Discussed risk/benefits and red flags. Patient verbalized understanding and agreed to plan of care at this time. Rebound headache 08/06/2021 Assessment & Plan (04/22/2022 12:02 PM CDT): Patient is a 22-year-old female with rebound headaches. I am going to have her take prednisone for the next 5 days and discontinue her analgesics use for the next 2 weeks. I would like to hear from her at that time regarding the headache frequency and severity. Assessment & Plan (10/22/2021 9:00 AM COMMUNICATIONS PROFESSOR): 4-5 days of OTC treatment per week for last month, encouraged efforts to limit this Assessment & Plan (08/06/2021 12:11 PM CDT): Taking tylenol and ibuprofen daily, suspect this is a component of her morning headaches. HCT and CTA recently unrevealing Could consider MRI if worsening, but given normal exam would treat for migraine and reduce analgesic use and monitor benefit as next step, which she agrees. Vaccine counseling 08/06/2021 Assessment & Plan (08/06/2021 12:06 PM CDT): Patient is unvaccinated and reports she needs to educate herself more on the vaccines before she takes one. She does not have specific questions or concerns about vaccine today, although I offered to address any questions/concerns she has. I encouraged her to consider vaccination. Intractable chronic migraine without aura and without status migrainosus 08/06/2021 Assessment & Plan (04/22/2022 12:02 PM CDT): The patient continues to have migraines. I am going to increase her venlafaxine to 150 mg. I have asked her to keep the 75 mg tablets in case we need to increase to 225 mg. I also gave her samples today of Nurtec which seems to work well for her from a rescue perspective. She has failed sumatriptan and naratriptan in the past. I will see her back in a couple months. Assessment & Plan (01/20/2022 3:38 PM COMMUNICATIONS PROFESSOR): She does feel it is better with venlafaxine 75 mg, but continues at 4-5 days per week and still feels these headaches can be significant She is sleeping well, hydrating, and exercising regularly Amerge and Imitrex worked for headaches but with problematic side effect/feeling weird [facility], will send prescription given she has failed two triptans Will increase venlafaxine to 112.5 mg, consider further increase to 150 in 3-4 weeks We discussed possibility of propranolol or topamax as future options, reviewed side effects of hypotension/low heart rate/fatigue with propranolol and paresthesia, smell change, weight loss, and effect on memory and control with topamax. She will read about these as well but would probably recommend low dose topamax as next step if needed RTC in 3-6 months, plan to adjust medication in interim for benefit Assessment & Plan (10/22/2021 8:59 AM COMMUNICATIONS PROFESSOR): Initially seemed to respond to venlafaxine, but increase last month (with new job and associated stress). She also reports light-headness with standing which suggests she may not be as well hydrated as she indicates. I suggested increase in venlafaxine to 75 mg as next step Sumatriptan not tolerated previously, so naratriptan 2.5 mg ordered today [facility] has been helpful, more samples provided and would go to this next if naratriptan not effective or also not tolerated. She will update me with response to higher dose venlafaxine in 3 weeks RTC in 3 months to reassess Assessment & Plan (08/06/2021 12:10 PM CDT): Daily headaches consistent with migraines. She has poor sleep, stress/anxiety, and analgesic overuse as major contributors to headache. I reviewed these and treatment options. She has recently started venlafaxine, would given this another few weeks. She has difficulty sleeping, would add amitriptyline as next step for sleep/headaches and consider this in a few weeks once venlafaxine initiated. I reviewed sleep hygiene and provided her with information on headache and sleep hygiene. 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 Consider acid peptic disease or nonulcer dyspepsia. Social History Tobacco Use Types Packs/Day Years Used Date Smoking Tobacco: Every Day Vaping Smokeless Tobacco: Never AUDIT-C Answer Date Recorded Q1: How often do you have a drink containing alc ohol? Never 08/06/2021 Average Number of Drinks Not on file 021 Frequency of Binge Drinking Not on file 07/15 Comments Unknown Sex and Gender Information Value Date Recorded Sex Assigned at Not on file Legal Sex Female 7:59 AM COMMUNICATIONS PROFESSOR Gender Identity Not on file Sexual Orientation Not on file Last Filed Vital Signs Vital Sign Reading Time Taken Comments Blood Pressure 124/62 04/22/2022 10:38 AM CDT Pulse 90 04/22/2022 10:38 AM CDT Temperature - - Respiratory Rate 16 04/22/2022 10:38 AM CDT Oxygen Saturation 100% 01/17/2017 8:53 AM COMMUNICATIONS PROFESSOR Inhaled Oxygen Concentration - - Weight 57.6 kg (127 lb) 04/22/2022 10:38 AM CDT Height 170.2 cm (5' 7 ) 04/22/2022 10:38 AM CDT Body Mass Index 19.89 04/22/2022 10:38 AM CDT Plan of Treatment Not on file Insurance [facility] [employer] ACCESS CHOICE Care Teams Fish And Wildlife Technician Relationship Specialty Start Date End Date Aleksandar Pierce MD [address] [place] [id number] PCP - General 04/02/19
--- OUTSIDE RECORDS SUMMARY | 2025-02-07 18:01 | XMS_ITS | Encounter Summary ---
Author Organization [facility] Address Formerly [facility] [place] [address] Care Team Providers Care Manager Of Finance Name Role Phone Aleksandar Pierce MD Primary Care Provider [phone] Reason for Visit * Auth/Cert (Routine) Specialty Diagnoses / Procedures Referred By Georgette t Referred To Contact Diagnoses dyspareunia, dysfunctional uterine bleeding Procedures HYSTEROSCOPY,W/ENDO BX LAP,LYSIS OF ADHESIONS DIAGNOSTIC LAPAROSCOPY, POSSIBLE LYSIS OF ADHESIONS, POSSIBLE EXCISION OF ENDOMETRIOSIS, HYSTEROSCOPY, POSSIBLE DILATATION AND CURETTAGE POSSIBLE DILATATION & CURETTAGE Monalisa Welch MD [address] [place] [address] Phone: tel: fax: Referral ID Status Reason Start Date Expiration Date Visits Re quested Visits Authorized [id number] 1 1 Encounter Details Date Type Department Care Team (Late st Contact Info) Description 02/07/2025 8:20 AM CDT - 02/07/2025 9:54 AM CDT [facility] [address] [place] [address] Monalisa Welch MD [address] [place] [address] DIAGNOSTIC LAPAROSCOPY, EXCISION OF ENDOMETRIOSIS, HYSTEROSCOPY Surgery Details Date/Time Status Location OR Service Patient Class Case Class Case Type Trauma Case? 02/07/2025 8:20 AM Posted [facility] OR OR 2 Gynecology Short Stay/Outpati ent Surgery No Panel 1 Procedure LRB Anes Op Region Wound Class Comments DIAGNOSTIC LAPAROSCOPY, EXCI CJ OF ENDOMETRIOSIS, HYSTEROSCOPY N/A General Abdomen Clean Contami nated Surgeon Surgeon Role Service Panel Monalisa Welch MD Primary Gynecology 1 documented in this encounter Social History Tobacco Use Types Packs/Day Years [...] Sign Reading Time Taken Comments Blood Pressure 106/51 02/07/2025 9:50 AM CDT Pulse 68 02/07/2025 9:50 AM CDT Temperature 36.2 C (97.1 F) 02/07/2025 9:19 AM CDT Respiratory Rate 13 02/07/2025 9:50 AM CDT Oxygen Saturation 100% 02/07/2025 9:50 AM CDT Inhaled Oxygen Concentration - - Weight 70.3 kg (155 lb) 02/07/2025 7:34 AM CDT Height 167.6 cm (5' 6 ) 02/07/2025 7:34 AM CDT Body Mass Index 25.02 02/07/2025 7:34 AM CDT documented in this encounter Discharge Instructions * Discharge Instructions* Krissy Messer RN - 02/07/2025 9:39 AM CDT [place] sent to [facility] in [place] PAIN PILL OF NORCO was given today [...] for follow-up care. Our office number is [phone]. PATIENT INSTRUCTIONS POST-ANESTHESIA IMMEDIATELY FOLLOWING SURGERY: Do [...] call your physician or Outpatient Surgery at [phone] Monday through Monday 8:00am to 4:00pm. If you have any questions after hours, you may call the hospital mail sorting supervisor at [phone]. * Attachments The following attachments cannot be sent through Care Everywhere. * Neck pain (Arabic) * Endometriosis (Arabic) * Hydrocodone and Acetaminophen, ADULT (Arabic) * Laparoscopy (Arabic) documented in this encounter Progress Notes * [...] during recuperation were discussed with the patient/family/personal compliance representative dealer. Reasonable alternatives to the patient's proposed procedure/surgery including benefits, risks, and side effects related to the alternatives and the risks related to not receiving the proposed care were also discussed with the patient/family/personal compliance representative dealer. Questions were answered and the patient/family/personal compliance representative dealer verbalized understanding and desires to proceed. Source Note - Scanned, [facility] - 01/29/2025 12:01 AM CDT * [...] during recuperation were discussed with the patient/family/personal compliance representative dealer. Reasonable alternatives to the patient's proposed procedure/surgery including benefits, risks, and side effects related to the alternatives and the risks related to not receiving the proposed care were also discussed with the patient/family/personal compliance representative dealer. Questions were answered and the patient/family/personal compliance representative dealer verbalized understanding and desires to proceed. Source Note - Scanned, [facility] - 01/29/2025 12:01 AM CDT documented [...] 02/07/2025 9:48 AM CDTSummary: Neck Pain MANAGER DOMESTIC notified of patient right sided neck pain. No fullness or abnormality palpated in comparison to left side of neck. Patient describes feeling like a kink in your neck when you sleep wrong. Patient seen at chiropractor yesterday for this same issue on the left side of the neck after moving heavyboxes into their new home. MANAGER DOMESTIC assessed patient. No concerns at this time. Will provide heat/ice as needed. * Katarina Pina RN - 02/07/2025 9:05 AM CDTSummary: Family update Family updated via messaging system. documented in this encounter OR Notes * Op Note - Monalisa Welch MD - 02/07/2025 9:26 AM CDT 02/07/25 dyspareunia, dysfunctional uterine bleeding * No post-op diagnosis entered * MONALISA WELCH MD ANESTHESIA: gen ELECTRICAL LINE SPLICER: timmy burger ESTIMATED BLOOD LOSS: min FINDINGS: normal external genitalia, normal vaginal canal and cervix. Nl endometrium, Endo in the anterior culdesac and along right US ligament and back of uterus on left. Few filimy adhesion of colon to left side wall near ovary. SPECIMENS: peritoneal biopsy Timeouts Katarina Pina RN at MonFeb 07, [id number] CDT Timeout Details Timeout type: Pre-incision Signing History Staff Performed Signed Katarina Pina RN MonFeb 07, [id number] CDT MonFeb 07, [id number] CDT PROCEDURE: The patient was taken to [...] the trocars were all removed. Timmy Burger, wheelchair van operator first responder, clowed the incisions while I turned attention [...] TEST NEGATIVE NEGATIVE 02/07/2025 7:41 AM CDT [facility] Comment: VERY DILUTE URINE SPECIMENS MAY NOT CONTAIN GENERAL MANAGER ROAD PRODUCTION LEVELS OF HCG. IF IS STILL SUSPECTED, A SERUM HCG TEST IS RECOMMENDED. URINE SPECIMEN FROM URETHRA / Unknown 02/07/2025 7:20 AM CDT us Monalisa Welch MD URINE ORDERABLES Final Resu lt [facility] [address] [place] [address], [place] [phone] documented in this encounter Visit Diagnoses Not [...] Given 02/07/2025 7:53 AM CDT 1,000 mg BUpivacaine-EPINEPHrine (PF) 0.25% -1:[id number] injection PRN, Starting on Mon02/07/25 at 0840, Until Mon02/07/25 at 0932, Anesthesia Intra-Op Given 02/07/2025 8:40 AM CDT 30 mLs Other famotidine (PF) (PEPCID) injection 20 mg 20 [...] admission IV Push over 2 minutes, Pre-Op 0802 (Given - Provid er: Krissy Messer RN) gabapentin (NEURONTIN) capsule 300 mg (COMPLETED) 300 mg, Oral, Once, 1 dose, On Mon02/07/25 at 0745, Pre-Op 0753 (Given - Provid er: Krissy Messer RN) [...] On Mon02/07/25 at 0800, On admission, Pre-Op 0801 (Given - Provid er: Krissy Messer RN) Continuous Medication Order 02/05/2025 02/06/2025 02/07/2025 lactated ringers infusion at 10 mL/hr, Intravenous, Continuous, Starting on Mon02/07/25 at 0745, Until Mon02/07/25 at 1340, Infuse at TKO rate, Pre-Op 0802 (New Bag - Prov ider: Krissy Messer [...] in 24 hours., Post-Op BUpivacaine-EPINEPHrine (PF) 0.25% -1:307536 injection (CANCELED) PRN, Starting on Mon02/07/25 at [...] (Given - Provid er: Krissy Messer RN) etzyehfwu-ibqbgbhw-zgusgtursfu (MYLANTA MAXIMUM STRENGTH) 9216-7973-597 mg/30mL suspension 10 mL, Oral, Every 4 hours PRN, Indigestion, Heartburn, Starting on Mon02/07/25 at 1024, Until Mon02/07/25 at 1340, Shake Well, Post-Op meperidine (DEMEROL) injection 25 mg (COMPLETED) 25 mg, Intravenous, Once as needed, Other, Intractable shivering, 1 dose, Starting on Mon02/07/25 at 0740, Until Mon02/07/25 at 0948, PACU 0948 (Given - Provid er: Katarina Pina, ELICEO) ondansetron (ZOFRAN) injection 4 mg 4 mg, [...] Post-Op documented in this encounter Care Teams Manager Of Finance Relationship Specialty Start Date End Date Aleksandar Pierce MD [address] [place] [address] PCP - General FAMILY PRACTICE 10/28/19 documented as of this encounter
--- OUTSIDE RECORDS SUMMARY | 2025-02-07 18:01 | XMS_ITS | Encounter Summary ---
Author Organization [facility] Address Formerly [facility] [place] [address] Care Team Providers Care Repair Coil Winder Name Role Phone Aleksandar Pierce MD Primary Care Provider [phone] Reason for Visit * Auth/Cert (Routine) Specialty Diagnoses / Procedures Referred By Contac t Referred To Contact Diagnoses dyspareunia, dysfunctional uterine bleeding Procedures HYSTEROSCOPY,W/ENDO BX LAP,LYSIS OF ADHESIONS DIAGNOSTIC LAPAROSCOPY, POSSIBLE LYSIS OF ADHESIONS, POSSIBLE EXCISION OF ENDOMETRIOSIS, HYSTEROSCOPY, POSSIBLE DILATATION AND CURETTAGE POSSIBLE DILATATION & CURETTAGE Monalisa Quintana MD [address] [place] [address] Phone: tel: fax: Referral ID Status Reason Start Date Expiration Date Visits Re quested Visits Authorized [id number] 1 1 Encounter Details Date Type Department Care Team (Late st Contact Info) Description 02/07/2025 8:15 AM CDT Anesthesia Event [facility] OR [address] [place] [address] Dante Mtz CRNA [address] [place] [address] Annetta Rivas V Anesthesia Record Procedure Summary Procedure Name Responsible Anesthesiologist Anesthesia Start Time Anesthesia Stop Time DIAGNOSTIC LAPAROSCOPY, EXCISION OF ENDOMETRIOSIS, HYSTEROSCOPY (Abdomen) Dante Mtz CRNA 02/07/25 0815 02/07/25 0917 Events Date Time Event Comment 02/07/2025 0718 0718 AN KNIFE SETTER ASSEMBLER Prepped 0718 AN Anesthesia Prepped 0815 An Start Patient ID and consent checked and patient reassessed. 0815 An Start Data 0818 Preoxygenation 0821 An Induction The patient was reevaluated immediately before moderate or deep sedation use and before anesthesia induction. 0823 An Intubation 0825 Anesthesia Ready 0909 An Emergence 0917 An Extubation 0917 Face Mask Applied 0917 an stop data 0917 Post Anesthetic Care Handoff I completed my handoff to the receiving nurse during which we: 1. Identified the patient 2. Identified the responsible provider 3. Reviewed the pertinent medical history 4. Discussed the surgical course 5. Reviewed intra-op anesthesia management and issues during anesthesia 6. Set expectations for post-procedure period 7. Allowed opportunity for questions and acknowledgement of understanding. 0917 An Stop Meds Name Total propofol (DIPRIVAN) 200 mg/20 mL injecti on 200 mg lidocaine (PF) (XYLOCAINE) 1% injection 100 mg fentaNYL (SUBLIMAZE) 100 mcg/2 mL inject ion 100 mcg midazolam 2 mg/2 mL injection 2 mg esmolol 10 mg/mL injection 40 mg ondansetron (ZOFRAN) 4 mg/2 mL injection 4 mg dexamethasone (DECADRON) 4mg/mL injectio n 8 mg diphenhydrAMINE (BENADRYL) 50 mg/mL inje ction 12.5 mg rocuronium (ZEMURON) 50 mg/5 mL injectio n 50 mg sugammadex (BRIDION) 500 mg/5 mL injecti on 280 mg ketorolac (TORADOL) 30 mg/mL injection 3 0 mg lactated ringers infusion 900 mL * Agents Name O2 N2O Air Inspired Sevoflurane Sevoflurane * Blood No blood administrations on file. Lines, Drains, and Airways Type Details Placement Removal ETT Placement Date: 01/12 07/07; Placement Time: 717; Placed Outside of This Facility?:No; Mask Ventilate: Prior to intubation, Easy; Endotracheal: Oral, Stylet used; Blade Type: Jimenez 2; Placement Method: Direct Laryngoscopy (blade type in comment); View Grade: 1; Viewable Anatomy: Epiglottis, Vocal cords; Insertion Attempts: 1; Placement Verified By: Capnography, Auscultation; Placed By: KNIFE SETTER ASSEMBLER; Extubation Assessment: Suctioned, Tolerated well, Patient spontaneously breathing, Atraumatic, Deep breathes w/equal chest movements; Removal Date: 02/07/25; Removal Time: 09; Removal Person: KNIFE SETTER ASSEMBLER; Removal Reason: End of Case 02/07/25 0718 by Dante Mtz CRNA 02/07/25 0917 by Dante Mtz CRNA Peripheral IV Placement Date: 01/12 07/07; Placement Time: 08; Placed Outside of This Facility?: No; Size: 20 G; Orientation: Left; Location: Antecubital; Site Prep: Chlorhexidine; Local Anesthetic: None; Insertion attempts: 1; Ultrasound-guided Placement?: No; Patient Tolerance: Tolerated well; Removal Date: 02/07/25; Removal Time: 1115; Removal Reason: Patient Discharged 02/07/25 0802 by Krissy Messer RN 02/07/25 111 by Krissy Messer RN NG/OG Tube Placement Date: 01/12 07/07; Placement Time: 0825; Inserted By: ARYAN Hopper; Tube Type: Orogastric; Tube Size: 16 Fr.; Tube Location: Oral; Secured at: 55 cm; Removal Date: 02/07/25; Removal Time: 0909; Removal Reason: End of Case 02/07/25 0825 by Dante Mtz CRNA 02/07/25 0909 by Dante Mtz CRNA [place] Catheter 02/07/25; 0845; No; Urologic Surgical intervention - Bladder, Prostate, SURGERY MANAGER procedures; 1; Hand hygiene performed, Site cleansed with sterile antiseptic, Sterile gloves, drape and lubricant used, Catheter inserted using aseptic technique; None; Straight-tip; 14 Fr.; Per Order 02/07/25 0845 by Katarina Pina RN 02/07/25 0846 by Katarina Pina RN Surgical/Incision 02/07/25; 0901; Surg ical Wound; Umbilicus; ADHESIVE DERMABOND; 02/07/25; 1335 02/07/25 0901 by Katarina Pina RN 02/07/25 1335 by Automatic Discharge Provider Surgical/Incision 02/07/25; 0901; Surg ical Wound; Abdomen; Left; ADHESIVE DERMABOND; 02/07/25; 1335 02/07/25 0901 by Katarina Pina RN 02/07/25 1335 by Automatic Discharge Provider Surgical/Incision 02/07/25; 0909; Surg ical Wound; Abdomen; Right; ADHESIVE DERMABOND; 02/07/25; 1335 02/07/25 0909 by Katarina Pina RN 02/07/25 1335 by Automatic Discharge Provider Surgical/Incision 02/07/25; 0943; Surg ical Wound; Abdomen; ADHESIVE DERMABOND; towel clip puncture sites, bilateral; 02/07/25; 1335 02/07/25 0943 by Katarina Pina RN 02/07/25 1335 by Automatic Discharge Provider documented in this encounter Social History Tobacco [...] on file documented as of this encounter OR Notes * Anesthesia Postprocedure Evaluation - Dante Mtz CRNA - 02/07/2025 9:24 AM CDT Anesthesia Post-op Note Salome Lo Procedure(s): DIAGNOSTIC LAPAROSCOPY, EXCISION OF ENDOMETRIOSIS, HYSTEROSCOPY (Abdomen) Anesthesia type: general Vitals: 02/07/25733 BP: 124/60 Vitals: 02/07/25733 Pulse: 60 Vitals: 02/07/25733 Resp: 18 Vitals: 02/07/25733 Temp: 36.6 ??C Vitals: 02/07/25733 SpO2: 100% Patient Location: PACU Level of Consciousness: awake, oriented and alert Pain Management: adequate analgesia Airway Patency: patent Respiratory Status: acceptable Cardiovascular Status: acceptable Post-Op Nausea: none Postoperative Hydration: euvolemic There were no known notable events for this encounter. * Anesthesia Preprocedure Evaluation - Jamie Lucas MD - 02/07/2025 7:17 AM CDT Anesthesia ROS/MED History Reviewed: Patient summary , Nursing notes , ECG, Family history anesthesia, Anesthesia history , Medications , Labs , Images/Studies Pre-Anesthetic State: alert, awake and responds appropriately Pulmonary Cardiovascular Neuro/Psych Substance Use GI/Hepatic/Renal Endo/Other GENERAL COMMENTS No Known Allergies Past Medical History: No date: Dysfunctional uterine bleeding No date: Dyspareunia, female No date: Scoliosis No date: Syringomyelia (CMS/HCC HHS/HCC) Past Surgical History: No date: TONSILLECTOMY NPO Status: Physical Evaluation Airway Mallampati: II TM Distance: >3 FB Neck ROM: normal Dental Pulmonary Pulmonary exam normal Breath sounds clear to auscultation Cardiovascular Rhythm: regular Rate: normal Cardiovascular exam normal Other findings: Height 1.676 m (5' 6 ), weight 70.3 kg (155 lb). No results for input(s): WBC , RBC , HGB , HCT , PLT , NA , K , CL , CO2 , AGAP , BUN , CR , BUNCREATININ , GFRNON , GFR , GLU , CA in the last 72 hours. STOP-Bang Assessment: Do you snore loudly?: (Patient-Rptd) 0 Do you often feel tired or fatigued after your sleep?: (Patient-Rptd) 1 Has anyone ever observed you stop breathing in your sleep?: (Patient-Rptd) 0 Do you have or are you being treated for high blood pressure?: (Patient-Rptd) 0 Recent BMI (Calculated): (Patient-Rptd) 25 Is BMI greater than 35 kg/m2?: (Patient-Rptd) 0=No Age older than 50 years old?: (Patient-Rptd) 0=No Is your neck circumference greater than 17 inches (Male) or 16 inches (Female)?: (Patient-Rptd) 0 Gender - Male: (Patient-Rptd) 0=No STOP-Bang Total Score: (Patient-Rptd) 1 Anesthesia Plan ASA 1 Intravenous Induction Anesthesia type: general Plan for Airway: ETT Plan for Post-op Pain Plan: oral pain medication, IV analgesics and as per surgeon Discussed potential risks of General Anesthesia including but not limited to corneal abrasion, visual impairment or visual loss, mouth injury, dental damage, sore throat, hoarseness, esophageal injury, awareness under anesthesia, nerve injury due to positioning, aspiration, pneumonia, stroke, cardiac event, adverse drug reactions and . Informed Consent Anesthetic plan, risks, and alternatives discussed with patient of whom consent was obtained. . documented in this encounter Plan of Treatment Not on file documented as of this encounter Visit Diagnoses Not on filedocumented in this encounter Administered Medications Inactive Administered Medications - up to 3 most recent administrations Medication Order MAR Action Action Date Dose Rate Site dexamethasone (DECADRON) injection Intravenous, PRN, Starting on Mon02/07/25 at 0826, Until Mon02/07/25 at 09, Anesthesia Intra-Op Given 02/07/2025 8:26 AM CDT 8 mg diphenhydrAMINE (BENADRYL) injection Intravenous, PRN, Starting on Mon02/07/25 at 0838, Until Mon02/07/25 at 0918, Anesthesia Intra-Op Given 02/07/2025 8:38 AM CDT 12.5 mg esmolol (BREVIBLOC) injection Intravenous, PRN, Starting on Mon02/07/25 at 0821, Until Mon02/07/25 at 0918, Anesthesia Intra-Op Given 02/07/2025 8:53 AM CDT 10 mg Given 02/07/2025 8:21 AM CDT 30 mg fentaNYL (SUBLIMAZE) injection Intravenous, PRN, Starting on Mon02/07/25 at 0838, Until Mon02/07/25 at 0918, Anesthesia Intra-Op Given 02/07/2025 9:16 AM CDT 25 mcg Given 02/07/2025 8:52 AM CDT 25 mcg Given 02/07/2025 8:41 AM CDT 25 mcg ketorolac (TORADOL) injection Intravenous, PRN, Starting on Mon02/07/25 at 0904, Until Mon02/07/25 at 0918, Anesthesia Intra-Op Given 02/07/2025 9:04 AM CDT 30 mg lactated ringers infusion at 10 mL/hr, Intravenous, Continuous, Starting on Mon02/07/25 at 0745, Until Mon02/07/25 at 1340, Infuse at TKO rate, Pre-Op Continued by Anesthesia 02/07/2025 8:15 AM CDT 10 mL/hr New Bag 02/07/2025 8:02 AM CDT 10 mL/hr lidocaine (PF) (XYLOCAINE) 1 % injection Intravenous, PRN, Starting on Mon02/07/25 at 0821, Until Mon02/07/25 at 0918, Anesthesia Intra-Op Given 02/07/2025 8:21 AM CDT 100 mg midazolam (VERSED) injection Intravenous, PRN, Starting on Mon02/07/25 at 0815, Until Mon02/07/25 at 0918, Anesthesia Intra-Op Given 02/07/2025 8:15 AM CDT 2 mg ondansetron (ZOFRAN) injection Intravenous, PRN, Starting on Mon02/07/25 at 0904, Until Mon02/07/25 at 0918, Anesthesia Intra-Op Given 02/07/2025 9:04 AM CDT 4 mg propofol (DIPRIVAN) IV bolus Intravenous, PRN, Starting on Mon02/07/25 at 0821, Until Mon02/07/25 at 0918, Anesthesia Intra-Op Given 02/07/2025 8:21 AM CDT 200 mg rocuronium (ZEMURON) injection Intravenous, PRN, Starting on Mon02/07/25 at 0821, Until Mon02/07/25 at 0918, Anesthesia Intra-Op Given 02/07/2025 8:21 AM CDT 50 mg sugammadex (BRIDION) injection Intravenous, PRN, Starting on Mon02/07/25 at 0904, Until Mon02/07/25 at 0918, Anesthesia Intra-Op Given 02/07/2025 9:04 AM CDT 280 mg documented in this encounter Care Teams Repair Coil Winder Relationship Specialty Start Date End Date Aleksandar Pierce MD [address] [place] [address] PCP - General FAMILY PRACTICE 10/28/19 documented as of this encounter
--- OUTSIDE RECORDS SUMMARY | 2025-02-07 18:01 | XMS_ITS | Clinical Summary ---
Author Organization [facility] Address [address] [place] [address] Care Team Providers Care Industrial Property Appraiser Name Role Phone Aleksandar Pierce MD Primary Care Provider [phone] Allergies No known active allergies Medications naratriptan [...] severity. Assessment & Plan (10/22/2021 9:00 AM RACK PUSHER): 4-5 days of OTC treatment per week [...] months. Assessment & Plan (01/20/2022 3:38 PM RACK PUSHER): She does feel it is better with venlafaxine 75 mg, but continues at 4-5 days per week and still feels these headaches can be significant She is sleeping well, hydrating, and exercising regularly Amerge and Imitrex worked for headaches but with problematic side effect/feeling weird [facility], will send [...] benefit Assessment & Plan (10/22/2021 8:59 AM RACK PUSHER): Initially seemed to respond to venlafaxine, but increase last month (with new job and associated stress). She also reports light-headness with standing which suggests she may not be as well hydrated as she indicates. I suggested increase in venlafaxine to 75 mg as next step Sumatriptan not tolerated previously, so naratriptan 2.5 mg ordered today [facility] has been helpful, more samples provided and [...] Consider acid peptic disease or nonulcer dyspepsia. Medical History Medical History Date Comments Anxiety Family History Medical History Relation Name Comments Asthma Mother Asthma - (Added by TW Conv) Cholelithiasis Other 1 Cholelithiasi s - --mom (Added by TW Conv) Anemia Other 2 Anemia - --mom (Added by TW Conv) Relation Name Status Comments Father Alive Mother Alive Other 1 Other 2 Social History Tobacco Use Types Packs/Day Years [...] on file Legal Sex Female 7:59 AM RACK PUSHER Gender Identity Not on file Sexual Orientation Not on file Obstetrics History Last Filed Vital Signs Vital Sign Reading Time Taken Comments Blood Pressure 124/62 04/22/2022 10:38 AM CDT Pulse 90 04/22/2022 10:38 AM CDT Temperature - - Respiratory Rate 16 04/22/2022 10:38 AM CDT Oxygen Saturation 100% 01/17/2017 8:53 AM RACK PUSHER Inhaled Oxygen Concentration - - Weight 57.6 kg (127 lb) 04/22/2022 10:38 AM CDT Height 170.2 cm (5' 7 ) 04/22/2022 10:38 AM CDT Body Mass Index 19.89 04/22/2022 10:38 AM CDT Plan of Treatment Health Maintenance Due Date Last Done Comments Cervical Cancer Screening 1999 Depression Screening 1999 Hepatitis C Screening 1999 Varicella Vaccines (2 of 2 - 2-dose childhood series) 2003 03/01/2000 Pneumococcal vaccine <65 (1 of 1 - PPSV23) 2005 01/26/2001, 08/01/2000, 05/29/2000 DTaP/Tdap/Td Vaccine (6 - Tdap) 2010 02/27/2004, 05/29/2000, 1999, Additional history exists HPV Vaccines (1 - 3-dose series) 2014 Regular Well Visit/Exam 18-64 2017 Covid-19 Vaccine (3 - 2023-2 5 season) 2024 09/28/2021, 09/06/2021 Influenza Vaccine (#1) 2024 Hepatitis B Screening Completed 1999 , 1999, 1999 Insurance DataContact CHOICE DataContact CHOICE Member Subscriber Plan / Payer (Ef fective 2023-Present) Name:Salome Lo Relation to Subscriber:Other Relationship Name:SRAVANTHI LO Date of :1972 (Home) Address: [address] [place] [id number] Payer ID:[id number] (NAIC) Type:[employer] Address: [address] [place] [id number] Care Teams Industrial Property Appraiser Relationship Specialty Start Date End Date Aleksandar Pierce MD [address] [place] [id number] PCP - General 04/02/19
[2025-02-07 18:04] VITALS: BP 132/60; PULSE 65; RESP 18; TEMP 36.6; O2SAT 99
--- OUTSIDE RECORDS SUMMARY | 2025-02-07 20:05 | XMS_ITS | Encounter Summary ---
Author Organization [facility] Address [address] [place] [address] Care Team Providers Care Mold Filler And Drainer Name Role Phone Aleksandar Pierce MD Primary Care Provider [phone] Encounter Details Date Type Department Care Team [...] on filedocumented in this encounter Care Teams Mold Filler And Drainer Relationship Specialty Start Date End Date Aleksadnar Pierce MD [address] [place] [address] PCP - General FAMILY PRACTICE 10/28/19 documented as of this encounter
--- OUTSIDE RECORDS SUMMARY | 2025-02-07 20:05 | XMS_ITS | Referral Summary ---
Author Organization [facility] Address [address] [place] [address] Care Team Providers Care Labor Representative Name Role Phone Aleksandar Pierce MD Primary Care Provider [phone] Allergies No known active allergies Medications naratriptan [...] severity. Assessment & Plan (10/22/2021 9:00 AM PL[place] GARDENS): 4-5 days of OTC treatment per week [...] months. Assessment & Plan (01/20/2022 3:38 PM PLOWING [place]ENS): She does feel it is better with venlafaxine 75 mg, but continues at 4-5 days per week and still feels these headaches can be significant She is sleeping well, hydrating, and exercising regularly Amerge and Imitrex worked for headaches but with problematic side effect/feeling weird Bannermireya worked really well for headache, will send [...] benefit Assessment & Plan (10/22/2021 8:59 AM [place]): Initially seemed to respond to venlafaxine, but increase last month (with new job and associated stress). She also reports light-headness with standing which suggests she may not be as well hydrated as she indicates. I suggested increase in venlafaxine to 75 mg as next step Sumatriptan not tolerated previously, so naratriptan 2.5 mg ordered today [facility] has been helpful, more samples [...] on file Legal Sex Female 7:59 AM [place] Gender Identity Not on file Sexual Orientation Not on file Last Filed Vital Signs Vital Sign Reading Time Taken Comments Blood Pressure 124/62 04/22/2022 10:38 AM CDT Pulse 90 04/22/2022 10:38 AM CDT Temperature - - Respiratory Rate 16 04/22/2022 10:38 AM CDT Oxygen Saturation 100% 01/17/2017 8:53 AM [place] Inhaled Oxygen Concentration - - Weight 57.6 kg (127 lb) 04/22/2022 10:38 AM CDT Height 170.2 cm (5' 7 ) 04/22/2022 10:38 AM CDT Body Mass Index 19.89 04/22/2022 10:38 AM CDT Plan of Treatment Not on file Insurance [facility] [employer] [place] CHOICE [employer] ACCESS CHOICE Care Teams Labor Representative Relationship Specialty Start Date End Date Aleksandar Pierce MD [address] [place] [id number] PCP - General 04/02/19
--- OUTSIDE RECORDS SUMMARY | 2025-02-07 20:05 | XMS_ITS | Encounter Summary ---
Author Organization [facility] Address [facility] [place] [address] Care Team Providers Care Band Presser Name Role Phone Aleksandar Pierce MD Primary Care Provider [phone] Reason for Visit * Auth/Cert (Routine) Specialty Diagnoses / Procedures Referred By Georgette t Referred To Contact Diagnoses dyspareunia, dysfunctional uterine bleeding Procedures HYSTEROSCOPY,W/ENDO BX LAP,LYSIS OF ADHESIONS DIAGNOSTIC LAPAROSCOPY, POSSIBLE LYSIS OF ADHESIONS, POSSIBLE EXCISION OF ENDOMETRIOSIS, HYSTEROSCOPY, POSSIBLE DILATATION AND CURETTAGE POSSIBLE DILATATION & CURETTAGE Monalisa Welch MD [address] [place] [address] Phone: tel: fax: Referral ID Status Reason Start Date Expiration Date Visits Re quested Visits Authorized [id number] 1 1 Encounter Details Date Type Department Care Team (Latest Contact Info) Description 02/07/2025 7:11 AM CDT - 02/07/2025 11:30 AM T Hospital Encounter [facility] OR [address] [place], [place] [id number] Monalisa Welch MD [address] [place] [address] Discharge Disposition: Home or Self [...] Messer RN - 02/07/2025 9:39 AM CDT [place] sent to [facility] in [place] PAIN PILL OF NORCO was given today [...] for follow-up care. Our office number is [phone]. PATIENT INSTRUCTIONS POST-ANESTHESIA IMMEDIATELY FOLLOWING SURGERY: Do [...] call your physician or Outpatient Surgery at [phone] Monday through Monday 8:00am to 4:00pm. If you have any questions after hours, you may call the hospital customer solutions supervisor at [phone]. * Attachments The following attachments cannot be sent through Care Everywhere. * Neck pain (Hong Konger) * Endometriosis ([place] Kong[place]) * Hydrocodone and Acetaminophen, ADULT ([place]) * Laparoscopy ([place] Konger) documented in this encounter Progress Notes * [...] during recuperation were discussed with the patient/family/personal customer field representative. Reasonable alternatives to the patient's proposed procedure/surgery including benefits, risks, and side effects related to the alternatives and the risks related to not receiving the proposed care were also discussed with the patient/family/personal customer field representative. Questions were answered and the patient/family/personal customer field representative verbalized understanding and desires to proceed. Source Note - Scanned, [facility] - 01/29/2025 12:01 AM CDT * Monalisa [...] during recuperation were discussed with the patient/family/personal customer field representative. Reasonable alternatives to the patient's proposed procedure/surgery including benefits, risks, and side effects related to the alternatives and the risks related to not receiving the proposed care were also discussed with the patient/family/personal customer field representative. Questions were answered and the patient/family/personal customer field representative verbalized understanding and desires to proceed. Source Note - Scanned, [facility] - 01/29/2025 12:01 AM CDT documented in [...] - 02/07/2025 9:48 AM CDTSummary: Neck Pain ACTUARY CLERK notified of patient right sided neck pain. No fullness or abnormality palpated in comparison to left side of neck. Patient describes feeling like a kink in your neck when you sleep wrong. Patient seen at chiropractor yesterday for this same issue on the left side of the neck after moving heavyboxes into their new home. ACTUARY CLERK assessed patient. No concerns at this time. Will provide heat/ice as needed. * Katarina Pina RN - 02/07/2025 9:05 AM CDTSummary: Family update Family updated via messaging system. documented in this encounter OR Notes * Op Note - Monalisa Welch MD - 02/07/2025 9:26 AM CDT 02/07/25 dyspareunia, dysfunctional uterine bleeding * No post-op diagnosis entered * MONALISA WELCH MD ANESTHESIA: gen CHIEF INNOVATION OFFICER: timmy burger ESTIMATED BLOOD LOSS: min FINDINGS: [...] the trocars were all removed. Timmy Burger, sociology research assistant, clowed the incisions while I turned [...] TEST NEGATIVE NEGATIVE 02/07/2025 7:41 AM CDT [facility] Comment: VERY DILUTE URINE SPECIMENS MAY NOT CONTAIN LOAD DISPATCHER LOCAL LEVELS OF HCG. IF IS STILL SUSPECTED, A SERUM HCG TEST IS RECOMMENDED. URINE SPECIMEN FROM URETHRA / Unknown 02/07/2025 7:20 AM CDT us Monalisa Welch MD URINE ORDERABLES Final Resu lt [facility] [address] [place] [address], [place] [phone] documented in this encounter Visit Diagnoses Not [...] in 24 hours., Post-Op BUpivacaine-EPINEPHrine (PF) 0.25% -1:[id number] injection (CANCELED) PRN, Starting on Mon02/07/25 at [...] (Given - Provid er: Krissy Messer RN) tctmnsdpa-msppruln-iekcbobruhp (MYLANTA MAXIMUM STRENGTH) [id number] mg/30mL suspension 10 mL, Oral, Every 4 [...] Post-Op documented in this encounter Care Teams Band Presser Relationship Specialty Start Date End Date Aleksandar Pierce MD [address] [place] [address] PCP - General FAMILY PRACTICE 10/28/19 documented as of this encounter
--- OUTSIDE RECORDS SUMMARY | 2025-02-07 20:05 | XMS_ITS | Clinical Summary ---
Author Organization [facility] Address [address] [place] [address] Care Team Providers Care Time Clock Mechanic Name Role Phone Aleksandar Pierce MD Primary Care Provider [phone] Allergies No known active allergies Medications naratriptan [...] severity. Assessment & Plan (10/22/2021 9:00 AM APARTMENT MAINTENANCE WORKER): 4-5 days of OTC treatment per week [...] months. Assessment & Plan (01/20/2022 3:38 PM APARTMENT MAINTENANCE WORKER): She does feel it is better with venlafaxine 75 mg, but continues at 4-5 days per week and still feels these headaches can be significant She is sleeping well, hydrating, and exercising regularly Amerge and Imitrex worked for headaches but with problematic side effect/feeling weird [facility], [...] benefit Assessment & Plan (10/22/2021 8:59 AM APARTMENT MAINTENANCE WORKER): Initially seemed to respond to venlafaxine, but increase last month (with new job and associated stress). She also reports light-headness with standing which suggests she may not be as well hydrated as she indicates. I suggested increase in venlafaxine to 75 mg as next step Sumatriptan not tolerated previously, so naratriptan 2.5 mg ordered today [facility] has been helpful, more samples provided [...] on file Legal Sex Female 7:59 AM APARTMENT MAINTENANCE WORKER Gender Identity Not on file Sexual Orientation Not on file Obstetrics History Last Filed Vital Signs Vital Sign Reading Time Taken Comments Blood Pressure 124/62 04/22/2022 10:38 AM CDT Pulse 90 04/22/2022 10:38 AM CDT Temperature - - Respiratory Rate 16 04/22/2022 10:38 AM CDT Oxygen Saturation 100% 01/17/2017 8:53 AM APARTMENT MAINTENANCE WORKER Inhaled Oxygen Concentration - - Weight 57.6 [...] Screening Completed 1999 , 1999, 1999 Insurance [employer] CHO[employer] CHO[employer] Member Subscriber Plan / Payer (Ef fective 2023-Present) Name:Salome Lo Relation to Subscriber:Other Relationship Name:SRAVANTHI LO Date of :1973 (Home) Address: [address] [place] [id number] Payer ID:[id number] (NAIC) Type:BC ALLI[employer] Address: [id number] [place] [id number] Care Teams Time Clock Mechanic Relationship Specialty Start Date End Date Aleksandar Pierce MD [address] [place] [id number] PCP - General 04/02/19
--- OUTSIDE RECORDS SUMMARY | 2025-02-07 20:05 | XMS_ITS | Encounter Summary ---
Author Organization [facility] Address [facility] [place] [address] Care Team Providers Care Hydraulic Chair Assembler Name Role Phone Aleksandar Pierce MD Primary Care Provider [phone] Reason for Visit * Auth/Cert (Routine) Specialty Diagnoses / Procedures Referred By Georgette t Referred To Contact Diagnoses dyspareunia, dysfunctional uterine bleeding Procedures HYSTEROSCOPY,W/ENDO BX LAP,LYSIS OF ADHESIONS DIAGNOSTIC LAPAROSCOPY, POSSIBLE LYSIS OF ADHESIONS, POSSIBLE EXCISION OF ENDOMETRIOSIS, HYSTEROSCOPY, POSSIBLE DILATATION AND CURETTAGE POSSIBLE DILATATION & CURETTAGE Monalisa Welch MD [address] [place] [address] Phone: tel: fax: Referral ID Status Reason Start Date Expiration Date Visits Re quested Visits Authorized [id number] 1 1 Encounter Details Date Type Department Care Team (Late st Contact Info) Description 02/07/2025 8:20 AM CDT - 02/07/2025 9:54 AM CDT [facility] OR [address] [place] [address] Monalisa Welch MD [address] [place] [address] DIAGNOSTIC LAPAROSCOPY, EXCISION OF ENDOMETRIOSIS, [...] Messer RN - 02/07/2025 9:39 AM CDT [place] sent to [facility] in [place] PAIN PILL OF NORCO was given today [...] for follow-up care. Our office number is [phone]. PATIENT INSTRUCTIONS POST-ANESTHESIA IMMEDIATELY FOLLOWING SURGERY: Do [...] call your physician or Outpatient Surgery at [phone] Monday through Monday 8:00am to 4:00pm. If you have any questions after hours, you may call the hospital vehicle maintenance supervisor at [phone]. * Attachments The following attachments cannot be sent through Care Everywhere. * Neck pain (Swedish) * Endometriosis (Swedish) * Hydrocodone and Acetaminophen, ADULT (Swedish) * Laparoscopy (Swedish) documented in this encounter Progress Notes * [...] during recuperation were discussed with the patient/family/personal advertising sales representative. Reasonable alternatives to the patient's proposed procedure/surgery including benefits, risks, and side effects related to the alternatives and the risks related to not receiving the proposed care were also discussed with the patient/family/personal advertising sales representative. Questions were answered and the patient/family/personal advertising sales representative verbalized understanding and desires to proceed. Source Note - Scanned, [facility] - 01/29/2025 12:01 AM CDT * Monalisa [...] during recuperation were discussed with the patient/family/personal advertising sales representative. Reasonable alternatives to the patient's proposed procedure/surgery including benefits, risks, and side effects related to the alternatives and the risks related to not receiving the proposed care were also discussed with the patient/family/personal advertising sales representative. Questions were answered and the patient/family/personal advertising sales representative verbalized understanding and desires to proceed. Source Note - Scanned, [facility] - 01/29/2025 12:01 AM CDT documented in this encounter Nursing Notes * Katarian Pina RN - 02/07/2025 9:59 AM CDTSummary: [...] - 02/07/2025 9:48 AM CDTSummary: Neck Pain V BELT COVERER notified of patient right sided neck pain. No fullness or abnormality palpated in comparison to left side of neck. Patient describes feeling like a kink in your neck when you sleep wrong. Patient seen at chiropractor yesterday for this same issue on the left side of the neck after moving heavyboxes into their new home. V BELT COVERER assessed patient. No concerns at this time. Will provide heat/ice as needed. * Katarina Pina RN - 02/07/2025 9:05 AM CDTSummary: Family update Family updated via messaging system. documented in this encounter OR Notes * Op Note - Monalisa Welch MD - 02/07/2025 9:26 AM CDT 02/07/25 dyspareunia, dysfunctional uterine bleeding * No post-op diagnosis entered * MONALISA WELCH MD ANESTHESIA: gen CRITICAL CARE PARAMEDIC: timmy burger ESTIMATED BLOOD LOSS: min FINDINGS: normal external genitalia, normal vaginal canal and cervix. Nl endometrium, Endo in the anterior culdesac and along right US ligament and back of uterus on left. Few filimy adhesion of colon to left side wall near ovary. SPECIMENS: peritoneal biopsy Timeouts aKtarina Pina RN at MonFeb 07, [id number] CDT [...] the trocars were all removed. Timmy Burger, emergency veterinary assistant, clowed the incisions while I turned [...] VERY DILUTE URINE SPECIMENS MAY NOT CONTAIN FIELD MACHINIST LEVELS OF HCG. IF IS STILL SUSPECTED, A SERUM HCG TEST IS RECOMMENDED. URINE SPECIMEN FROM URETHRA / Unknown 02/07/2025 7:20 AM CDT us Monalisa Welch MD URINE ORDERABLES Final Resu lt [facility] [address] [place] [address], [place] [phone] documented in this encounter Visit Diagnoses Not [...] AM CDT 1,000 mg BUpivacaine-EPINEPHrine (PF) 0.25% -1:375602 injection PRN, Starting on Mon02/07/25 at 0840, [...] in 24 hours., Post-Op BUpivacaine-EPINEPHrine (PF) 0.25% -1:735827 injection (CANCELED) PRN, Starting on Mon02/07/25 at [...] (Given - Provid er: Krissy Messer RN) fratznwxx-iibyrrpk-vpsccsqoihv (MYLANTA MAXIMUM STRENGTH) [id number] mg/30mL suspension 10 mL, Oral, Every 4 [...] Post-Op documented in this encounter Care Teams Hydraulic Chair Assembler Relationship Specialty Start Date End Date Aleksandar Pierce MD [address] [place] [address] PCP - General FAMILY PRACTICE 10/28/19 documented as of this encounter
--- OUTSIDE RECORDS SUMMARY | 2025-02-07 20:05 | XMS_ITS | Encounter Summary ---
Author Organization [facility] Address [facility] [place] [address] Care Team Providers Care Tumor Registrar Name Role Phone Aleksandar Pierce MD Primary Care Provider [phone] Reason for Visit * Auth/Cert (Routine) Specialty Diagnoses / Procedures Referred By Contac t Referred To Contact Diagnoses dyspareunia, dysfunctional uterine bleeding Procedures HYSTEROSCOPY,W/ENDO BX LAP,LYSIS OF ADHESIONS DIAGNOSTIC LAPAROSCOPY, POSSIBLE LYSIS OF ADHESIONS, POSSIBLE EXCISION OF ENDOMETRIOSIS, HYSTEROSCOPY, POSSIBLE DILATATION AND CURETTAGE POSSIBLE DILATATION & CURETTAGE Monalisa Quintana MD [address] [place] [address] Phone: tel: fax: Referral ID Status Reason Start Date Expiration Date Visits Re quested Visits Authorized [id number] 1 1 Encounter Details Date Type Department Care Team (Late st Contact Info) Description 02/07/2025 8:15 AM CDT Anesthesia Event [facility] OR [address] [place] [address] Dante Mtz CRNA [address] [place] [address] Annetta Rivas V Anesthesia Record Procedure Summary Procedure Name Responsible Anesthesiologist Anesthesia Start Time Anesthesia Stop Time DIAGNOSTIC LAPAROSCOPY, EXCISION OF ENDOMETRIOSIS, HYSTEROSCOPY (Abdomen) Dante Mtz CRNA 02/07/25 0815 02/07/25 0917 Events Date Time Event Comment 02/07/2025 0718 0718 AN SERVICE ORDER DISPATCHER Prepped 0718 AN Anesthesia Prepped 0815 An [...] Placement Verified By: Capnography, Auscultation; Placed By: SERVICE ORDER DISPATCHER; Extubation Assessment: Suctioned, Tolerated well, Patient spontaneously breathing, Atraumatic, Deep breathes w/equal chest movements; Removal Date: 02/07/25; Removal Time: 09; Removal Person: SERVICE ORDER DISPATCHER; Removal Reason: End of Case 02/07/25 0718 [...] No; Urologic Surgical intervention - Bladder, Prostate, PLANNING AIDE procedures; 1; Hand hygiene performed, Site cleansed [...] mg documented in this encounter Care Teams Tumor Registrar Relationship Specialty Start Date End Date Aleksandar Pierce MD [address] [place] [address] PCP - General FAMILY PRACTICE 10/28/19 documented as of this encounter
--- OUTSIDE RECORDS SUMMARY | 2025-02-07 20:05 | XMS_ITS | Clinical Summary ---
Author Organization [facility] Address [facility] [place] [address] Care Team Providers Care Equipment Worker Name Role Phone Aleksandar Pierce MD Primary Care Provider [phone] Allergies No known active allergies Medications ondansetron 4 MG disintegrating tablet Take 1 tablet (4 mg total) by mouth every 6 (six) hours as needed. 10 tablet 01/31/20 25 Discontinu ed(Error) Active Problems No known active problems Encounters Date Type Department Care Team Description 02/07/2025 8:20 AM CDT - 02/07/2025 9:54 AM CDT [facility] OR [address] [place] [address] Monalisa Quintana MD DIAGNOSTIC LAPAROSCOPY, EXCISION OF ENDOMETRIOSIS, HYSTEROSCOPY 02/07/2025 8:15 AM CDT Anesthesia Event [facility] [address] [place] [address] Dante Mtz CRNA Dietz, Tessa V 02/07/2025 7:11 AM CDT - 02/07/2025 11:30 AM CDT Hospital Encounter [address] [address] Monalisa Quintana MD Discharge Disposition: Home or Self Care (Routine Discharge) 02/07/2025 Travel 01/30/2025 Travel 01/29/2025 2:20 PM CDT - 01/29/2025 11:59 PM CDT Hospital Encounter [facility] [address] [place] [address] Monalisa Quintana MD Discharge Disposition: Home or Self Care (Routine Discharge) 01/29/2025 Orders Only [facility] [address] [place] [address] Monalisa Quintana MD 01/29/2025 Travel from Last [...] TEST NEGATIVE NEGATIVE 02/07/2025 7:41 AM CDT [facility] Comment: VERY DILUTE URINE SPECIMENS MAY NOT CONTAIN DIRECTOR CAREER SERVICES LEVELS OF HCG. IF IS STILL SUSPECTED, A SERUM HCG TEST IS RECOMMENDED. URINE SPECIMEN FROM [facility] / Unknown 02/07/2025 7:20 AM CDT Monalisa Quintana MD URINE ORDERABLES Final Resu lt [facility] [address] [place] [address], [place] [phone] * URINALYSIS W/ REFLEX TO MICROSCOPIC (01/29/2025 2:35 PM CDT) SPECIMEN TYPE urine 01/29/2025 2:37 PM CDT [facility] COLOR (U) LIGHT YELLOW 01/29/2025 8:05 PM CDT [facility] TRANSPARENCY CLEAR 01/29/2025 8:05 PM CDT [facility] SPECIFIC GRAVITY (U) 1.014 1.001 - 1.030 01/29/2025 8:05 PM CDT [facility] U PH 7.5 5.0 - 9.0 01/29/2025 8:05 PM CDT [facility] LEUKOCYTES (U) NEGATIVE NEGATIVE 01/29/2025 8:05 PM CDT [facility] NITRITES NEGATIVE NEGATIVE 01/29/2025 8:05 PM CDT [facility] PROTEIN RANDOM (U) NEGATIVE <30 MG/DL 01/29/2025 8:05 PM CDT [facility] GLUCOSE (U) NORMAL NORMAL MG/DL 01/29/2025 8:05 PM CDT [facility] KETONES MG/DL (U) NEGATIVE NEGATIVE MG/DL 01/29/2025 8:05 PM CDT [facility] UROBILINOGEN NORMAL NORMAL MG/DL 01/29/2025 8:05 PM CDT [facility] BILIRUBIN (U) NEGATIVE NEGATIVE MG/DL 01/29/2025 8:05 PM CDT [facility] BLOOD (U) NEGATIVE NEGATIVE 01/29/2025 8:05 PM CDT [facility] URINE SPECIMEN OBTAINED BY CLEAN CATCH PROCEDURE / Unknown 01/29/2025 2:35 PM CDT Monalisa Quintana MD URINE ORDERABLES Final Resu lt Performing Organization Address [facility] Co de Phone Number [facility] [address] [place] [address], [place] [phone] [facility] [address] [place] [address], [place] * URINE BACTERIA CULTURE (01/29/2025 2:35 PM CDT) SPEC DESCRIPTION URINE CLEAN CATCH 01/29/2025 2:32 PM CDT [facility] SPECIAL REQUESTS NO SPECIAL REQUEST 01/29/2025 2:32 PM CDT [facility] CULTURE RESULT NO GROWTH 2 DAYS 01/31/2025 8:04 AM CDT [facility] URINE SPECIMEN OBTAINED BY CLEAN CATCH PROCEDURE / Unknown 01/29/2025 2:35 PM CDT 01/29/2025 2:36 PM CDT Monalisa Quintana MD [facility] Final Result Performing Organization Address [facility] Co de Phone Number [facility] [address] [place] [address], [place] [phone] [facility] [address] [place] [address], [place] * (ABNORMAL) CBC W/DIFF AUTOMATED (01/29/2025 2:35 PM CDT) WBC 8.66 4.50 - 11.00 x10'3/uL 01/29/2025 2:39 PM CDT [facility] RBC 4.37 4.00 - 5.20 x10'6/uL 01/29/2025 2:39 PM CDT [facility] HGB 12.6 12.0 - 16.0 G/DL 01/29/2025 2:39 PM CDT [facility] HCT 37.1(L) 38.0 - 48.0 % 01/29/2025 2:39 PM CDT [facility] MCV 84.9 80.0 - 100.0 FL 01/29/2025 2:39 PM CDT [facility] MCH 28.8 26.0 - 34.0 PG 01/29/2025 2:39 PM CDT [facility] MCHC 34.0 31.0 - 37.0 G/DL 01/29/2025 2:39 PM CDT [facility] RDW 11.8 11.6 - 14.8 % 01/29/2025 2:39 PM CDT [facility] PLT 344 130 - 400 x10'3/uL 01/29/2025 2:39 PM CDT [facility] MPV 9.4 7.0 - 12.0 FL 01/29/2025 2:39 PM CDT [facility] CBC COMMENT AUTOMATED RBC MORPHOLOGY AND PLATELET EVALUATION NORMAL 01/29/2025 2:39 PM CDT [facility] NEUTROPHILS % 63.2 40.0 - 74.0 % 01/29/2025 2:39 PM CDT [facility] LYMPHOCYTES % 24.9 14.0 - 46.0 % 01/29/2025 2:39 PM CDT [facility] MONOCYTES % 8.9 4.0 - 13.0 % 01/29/2025 2:39 PM CDT [facility] EOSINOPHILS 2.2 0.0 - 7.0 % 01/29/2025 2:39 PM CDT [facility] BASOPHILS 0.6 0.0 - 3.0 % 01/29/2025 2:39 PM CDT [facility] IMMATURE GRANS % 0.2 0.0 - 0.43 % 01/29/2025 2:39 PM CDT [facility] NRBC % 0.0 % 01/29/2025 2:39 PM CDT [facility] ABS. NEUTROPHILS TOTAL 5.47 1.69 - 7.81 x10'3/uL 01/29/2025 2:39 PM CDT [facility] ABS. LYMPHOCYTES 2.16 0.21 - 5.42 x10'3/uL 01/29/2025 2:39 PM CDT [facility] ABS. MONOCYTES 0.77 0.04 - 1.37 x10'3/uL 01/29/2025 2:39 PM CDT [facility] ABS. EOSINOPHILS 0.19 0.00 - 0.68 x10'3/uL 01/29/2025 2:39 PM CDT [facility] ABS. BASOPHILS 0.05 0.00 - 0.08 x10'3/uL 01/29/2025 2:39 PM CDT [facility] ABS. IMMATURE GRANULOCYTES 0.02 0.00 - 0.06 x10'3/uL 01/29/2025 2:39 PM CDT [facility] ABS. NUCLEATED RBC'S 0.00 0.00 - 0.01 x10'3/uL 01/29/2025 2:39 PM CDT [facility] 01/29/2025 2:35 PM CDT us Monalisa Quintana MD LABORATORY Final Resul t [facility] [address] [place] [address], from Last [address] [place] [address] Advance Directives * Full Code (Latest Code Status on File) Date Activated Date Inactivated Comments 02/07/2025 10:24 AM 02/07/2025 1:45 PM Care Teams Equipment Worker Relationship Specialty Start Date End Date Aleksandar Pierce MD [address] [place] [address] PCP - General FAMILY PRACTICE 10/28/19
== END 2025-02-07 21:17 | disposition left against medical advice (07) ==
LOC: ANHED 20:04
PROVIDERS: PCP Emergency Medicine
DX: M54.2 Cervicalgia (principal)
CPT/HCPCS: 99199